=== PATIENT | male | born 1960 | race Caucasian/White ===

== ENCOUNTER 2023-03-04 12:28 | Outpatient (CLI) | payer BC, SELFPAY ==
--- NOTE | ~2023-03-04 | CT_ITS ---
Non-contrast CT scan of the Abdomen and Pelvis Clinical indication: Kidney stone Technique: 2.5 mm axial scans were obtained through the abdomen and pelvis without intravenous or or al contrast. Dose reduction technique was used on this scan by utilizing automated exposure control a nd iterative reconstruction technique. The dose-length product (DLP) was 960.55 mGy-cm. COMPARISON: 11/21/2011 Findings: Images through the lung bases reveal no abnormalities. There is no evidence of renal or ureteral calculi. The kidneys and the ureters are nondilated. The liver, spleen, pancreas, and adrenals appear normal. Small calcified gallstones are present. Ther e is no aortic aneurysm. There is no evidence of bowel obstruction. Images through the pelvis were performed. There is no evidence of ascites or lymphadenopathy. Urinary bladder unremarkable. Prostate gland is mildly enlarged. Small fat-containing left inguinal hernia p resent. Impression: No renal stones identified. Small fat-containing left inguinal hernia. Cholelithiasis. Reviewed, dictated and finalized at location . Impression: No renal stones identified. Small fat-containing left inguinal hernia. Cholelithiasis.
--- NOTE | ~2023-03-04 | XR_ITS ---
XR abdomen/kub 1V 03/04/2023 13:05 INDICATION: History of kidney stones TECHNIQUE: KUB COMPARISON: CT dated 11/21/2011 FINDINGS: Bowel gas pattern is normal. There are amorphous calcifications in the right upper abdomen, suspicious for gallstones. No definite renal stones. There is no evidence of free air, mass, organom egaly, ascites or obstruction. The bones appear intact. Median sternotomy wires are noted. IMPRESSION: 1: Calcifications in the right upper abdomen are likely gallstones.. Reviewed, dictated and finalized at location L.
== END 2023-03-04 12:29 | disposition home or self-care (01) ==
PROVIDERS: PCP Family Medicine; Visit Provider Urology
DX: Z87.442 Personal history of urinary calculi (principal); K40.90 Unilateral inguinal hernia, without obstruction or gangrene, not specified as recurrent; K80.20 Calculus of gallbladder without cholecystitis without obstruction
CPT/HCPCS: 74018; 74176

== ENCOUNTER 2025-09-26 09:08 | Outpatient (CLI) | payer BC, SELFPAY ==
--- OUTSIDE RECORDS SUMMARY | 2025-09-26 09:53 | XMS_ITS | Clinical Summary ---
Author Organization [email or web address] Address [address] [place] [address] Care Team Providers Care Customer Care Assistant Name Role Phone Unavailable Primary Care Provider Unavailabl e Source Comments [email or web address],non-owned Affiliates and Associated Physician Practices is amultiple site organization consisting of ambulatory clinics and hospital sitesin [place], [place] and [place]. This disclosure is being madepursuant to the Care Everywhere program and may not contain all information available regarding this patient. Last updated 18.[email or web address] Social History Tobacco Use Types Packs/Day Years Used Date Smoking Tobacco: Never Assessed Sex and Gender Information Value Date Recorded Sex Assigned at Not on file Legal Sex Male 11:12 PM [employer] Gender Identity Not on file Sexual Orientation Not on file Plan of Treatment Health Maintenance Due Date Last Done Comments COLOGUARD (AGES 45-75) - COL ON CA SCREENING 1960 COLON MONITORING 1960 COLONOSCOPY - COLON CA SCREENING 1960 CT COLONOGRAPHY - COLON CA SCREENING 1960 Colorectal Cancer Screening 1960 FIT - COLON CA SCREENING 1960 FLEX SIG - COLON CA SCREENING 1960 LIPID TESTING 1960 HIV SCREENING 1975 HEPATITIS C SCREENING 11/10/1978 DTAP/TDAP/TD VACCINES (1 - Tdap) 1979 PNEUMOCOCCAL VACCINE 50+ (1 of 1 - PCV) 2010 ZOSTER VACCINE (1 of 2) 2010 DEPRESSION SCREENING 10/27/2024 COVID-19 VACCINE ( - 2024-2 6 season) 2025 INFLUENZA VACCINE (#1) 2025 Respiratory Syncytial Virus (RSV) Vaccine Pt: or over 60 yrs (1 - 1-dose 75+ series) 2035 HEPATITIS B VACCINE Aged Out No longe r eligible based on patient's age to complete this topic HIB VACCINE Aged Out No longer eligi ble based on patient's age to complete this topic HPV VACCINE Aged Out No longer eligi ble based on patient's age to complete this topic MENINGOCOCCAL (Group B) VACC INE SHARED DECISION-MAKING Aged Out No longer eligibl e based on patient's age to complete this topic MENINGOCOCCAL GROUPS A/C/Y/W VACCINE Aged Out No longer eligible b ased on patient's age to complete this topic
[2025-09-26 10:49] LABS: Anion Gap 5 mmol/L (4-12); Blood Urea Nitrogen 19 mg/dL (9-20); Calcium 10.2 mg/dL (8.4-10.2); Carbon Dioxide 26 mmol/L (22-30); Chloride 107 mmol/L (98-107); Estimated Glomerular Filt Rate 56; Glucose 95 mg/dL (65-110); Potassium 4.2 mmol/L (3.4-5.0); Sodium 138 mmol/L (137-145)
== END 2025-09-26 09:09 | disposition home or self-care (01) ==
LOC: ANHSURGERY 09:11
PROVIDERS: Anesthesiology; PCP Family Medicine; Visit Provider Urology
DX: Z01.818 Encounter for other preprocedural examination (principal); T50.2X5A Adverse effect of carbonic-anhydrase inhibitors, benzothiadiazides and other diuretics, initial encounter
CPT/HCPCS: 36415; 80048

== ENCOUNTER 2025-09-29 00:46 | Day surgery (SDC) | payer BC, SELFPAY ==
--- OUTSIDE RECORDS SUMMARY | 2024-04-13 03:00 | XMS_ITS ---
Author Organization [facility] Address [address] [place] [address] Care Team Providers Care Railway Signal Operator Name Role Phone Dr. Alejandra Can Primary Care Provider [phone] Migration, Provider Unavailable Unavailable REASON FOR VISIT EMR-Marcin Encounters Encounter Location Date Provider Diagnosis [facility] [address] [place] [address] 04/13/2024 Provider Migration Otitis media, unspecified, left ear H66.92 and Cough, unspecified R05.9 Assessments Encounter Date Diagnosis (ICD Code) Assessment Notes Treatment Notes Treatment Clinical Notes Section Notes 04/13/2024 Otitis media, unspecified, left ear (ICD-10 - H66.92) 04/13/2024 Cough, unspecified (ICD-10 - R05.9) Plan Of Treatment Next Appt Details Provider Name:Dr. Alejandra Velasquez [facility], 04/21/2026 09:30:00 AM, [address] [facility], [place], [address], [phone] Progress Notes * Simón DOBBSOB:1960 (64 yo M)Acc No.[id number]:04/13/2024 Patient: Patrick Sanchez Provider: Kwasi pitt Migration :1960 A ge:63 Y S ex:Male Date:04/13/2024 Phone: Address:[address] [place] [address], [place], [phone] Pcp:Dr. 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 O titis media, unspecified, left ear - H66.92 S pecify :Src Diagnosis Name: Left otitis media 2 . C ough, unspecified - R05.9 S pecify :Src Diagnosis Name: Cough * Electronic signature of Prov ider Migration on 09/29/2025 at 12:49 AM GSA COORDINATOR Sign off status: Pending * Provider: Kwasi pitt Migration Date: 0 04/13/2024 Generated for Bandar stark/aHns/Katelin on: 1 11/30/2024 12:49 AM GSA COORDINATOR
--- OUTSIDE RECORDS SUMMARY | 2024-09-17 03:30 | XMS_ITS ---
Author Organization [facility] Address [address] [place] [address] Care Team Providers Care Trust Manager Name Role Phone Dr. Alejandra Can Primary Care Provider [phone] REASON FOR VISIT 6 mo check up Vital Signs Temperature 97.7 degrees Fahrenheit 09/17/20 24 Blood pressure systolic 110 mm Hg 09/17/20 24 Blood pressure diastolic 58 mm Hg 024 Heart Rate 59 /min 09/17/2024 Respiratory Rate 16 /min 09/17/2024 Height 70.00 in 09/17/2024 Weight 261.40 lbs 09/17/2024 BMI 37.50 kg/m2 09/17/2024 Oximetry 97 % 09/17/2024 Height-cm 177.80 cm 09/17/2024 Weight-kg 118.57 kg 09/17/2024 Encounters Encounter Location Date Provider Diagnosis [address] [address] 09/17/2024 Dr. Alejandra Can Essential (primary) hypertension I10 ; Prediabetes R73.03 ; Heartburn R12 ; Hyperlipidemia, unspecified E78.5 ; Morbid (severe) obesity due to excess calories E66.01 and Elevated prostate specific antigen [PSA] R97.20 Assessments Encounter Date Diagnosis (ICD Code) Assessment Notes Treatment Notes Treatment Clinical Notes Section Notes 09/17/2024 Essential (primary) hypertension (ICD-10 - I10) 09/17/2024 Prediabetes (ICD-10 - R73.03) 09/17/2024 Heartburn (ICD-10 - R12) 09/17/2024 Hyperlipidemia, unspecified (ICD-10 - E78.5) 09/17/2024 Morbid (severe) obesity due to excess calories (ICD-10 - E66.01) 09/17/2024 Elevated prostate specific antigen [PSA] (ICD-10 - R97.20) Plan Of Treatment Next Appt Details Provider Name:Dr. Alejandra dalal, 04/21/2026 09:30:00 AM, [address] [facility], [place], [address], [phone] Progress Notes * Simón DOBBSOB:1960 (64 yo M)Acc No.[id number]:09/17/2024 Patient: Patrick Sanchez Provider: Jorge Can MD :1960 A ge:63 Y S ex:Male Date:09/17/2024 Phone: Address:[address] [place] [id number] Subjective: * Chief Complaints: * 6 mo check up Objective: * Vitals: B P: 110/58 mm Hg, HR: 59 /min, RR: 16 /min, Temp: 97.7 F, Oxygen sat %: 97 %, Ht: 70.00 in, Wt: 261.40 lbs, Wt-k.57 kg, Ht-cm: 177.80 cm, BMI: 37.50 Index. Past Vitals:* 02/27/2024 BP: 132/72 mm Hg, HR: 57 /mi n, Oxygen sat %: 98 %, Wt: 267.40 lbs, Wt-k.29 kg * 08/18/2023 BP: 126/86 mm Hg, HR: 58 /mi n, Oxygen sat %: 95 %, Wt: 300.25 lbs, Wt-k.19 kg Assessment: * Assessment: 1. M orbid (severe) obesity due to excess calories - E66.01 2 . H yperlipidemia, unspecified - E78.5 S pecify :Src Diagnosis Name: Hyperlipidemia 3 . E ssential (primary) hypertension - I10 4 . H eartburn - R12 5 . P rediabetes - R73.03 6 . E levated prostate specific antigen [PSA] - R97.20 S pecify :Src Diagnosis Name: PSA elevation * Electronic signature of Dr. Alejandra Can on 09/29/2025 at 12:49 AM PUMP ATTENDANT Sign off status: Pending * Provider: Jorge Can MD Date: 11/17/2023 Generated for Bandar stark/Hans/Katelin on: 11/30/2024 12:49 AM PUMP ATTENDANT
--- OUTSIDE RECORDS SUMMARY | 2024-09-25 03:00 | XMS_ITS ---
Author Organization [facility] Address [address] [place] [address] Care Team Providers Care Senior Hardware Design Engineer Name Role Phone Dr. Alejandra Can Primary Care Provider [phone] Migration, Provider Unavailable Unavailable REASON FOR VISIT EMR-Marcin Encounters Encounter Location Date Provider Diagnosis [facility] [address] [place] [address] 09/25/2024 Provider Migration Plan Of Treatment Medication Medication Name Sig Start Date Stop Date Notes Repatha SureClick 140 mg/mL Solution Auto-injector Subcutaneous; Duration: 28 05/02/2021 11/11/2021 ,discontinuereason:D iscontinued Pepcid oral; Duration: 0 05/29/2021 11/11/2021 ,discon tinuereason:D iscontinued *Pick strength-form from [facility] for eRX* Nitroglycerin 0.6 MG Tablet Sublingual Sublingual; Duration: 0 05/29/2021 11/11/2021 ,discontinuereason:D iscontinued Tadalafil 5 MG Tablet 1 Oral every day; Duration: 90 08/30/2024 09/16/2024 ,discontinuereason:D iscontinued Tadalafil 20 MG Tablet Oral; Duration: 0 01/24/20232022 Rx Refill Request,discontinuer tawnya:Refilled Fish Oil 1000 MG Capsule 1 Oral every da y; Duration: 0 11/12/2021 04/23/2023 ,discontinuereason:D iscontinued Topiramate 50 MG Tablet 1 Oral two times a day; Duration: 30 06/17/2024 06/17/2024 Rx Refill Request,discontinuer tawnya:Refilled Doxycycline Hyclate 100 MG Tablet 1 Oral two times a day; Duration: 10 04/11/2022 04/20/2022 Klor-Con M20 20 MEQ Tablet Extended Release 1 Oral every day; Duration: 0 11/12/2021 09/16/2024 ,discontinuereason:D iscontinued ranolazine 1000.000 mg tablet extended release 12 hr oral; Duration: 90 03/12/2021 11/11/2021 ,discontinuer tawnya:D iscontinued *Reorder from [facility] for eRx and Interaction Alerts* Ketoconazole 2 % Cream External two time s a day; Duration: 0 08/15/2022 09/16/2024 ,discontinuereason:D iscontinued Cephalexin 500 MG Tablet 1 Oral three ti mes a day; Duration: 11/12/2021 11/21/2021 Furosemide 40 MG Tablet 1 Oral; Duration: 0 05/29/2021 ,discontinuereason:D iscontinued Mupirocin 2 % Ointment External three times a day; Duration: 0 08/15/2022 09/16/2024 ,discontinuereason:D iscontinued Benzonatate 100 MG Capsule 1 Oral three times a day; Duration: 03/21/2023 03/30/2023 Ozempic (0.25 or 0.5 MG/DOSE) 2 MG/3ML Solution Pen-injector Subcutaneous; Duration: 0 09/11/2023 10/13/2023 insurance denied [place],discontinuereason :Insurance Coverage Cyclobenzaprine HCl 5 MG Tablet 1 Oral three times a day; Duration: 06/05/2022 09/16/2024 ,discontinuereason:D iscontinued,PRN Reason:for pain Clopidogrel Bisulfate 75 MG Tablet 1 Oral every day; Duration: 0 11/12/2021 08/17/2023 ,discontinuereason:D iscontinued Aspirin Adult Low Strength 81 MG Tablet Delayed Release Oral; Duration: 0 05/29/2021 11/11/2021 ,discontinuere ason:D iscontinued Vitamin B-12 1,000 mcg Tablet Extended Release 1 Oral every day; Duration: 0 05/29/2021 11/11/2021 ,discontinuereason:D iscontinued *Pick strength-form from [facility] for eRX* ProAir RespiClick 108 (90 Base) MCG/ACT Aerosol Powder Breath Activated 2 Inhalation every 4-6 hours; Duration: 0 10/07/2023 10/07/2023 ,PRN Reason:for SOB Metoprolol Succinate ER 25 MG Tablet Extended Release 24 Hour 1/2 Oral every day; Duration: 0 11/12/2021 04/23/2023 ,discontinuereason:D iscontinued Naproxen 500 MG Tablet 1 Oral two times a day; Duration: 01/17/2024 01/26/2024 predniSONE 20 MG Tablet 3 Oral every day ; Duration: 04/22/2022 04/24/2022 dexAMETHasone 6 MG Tablet 1 Oral every day; Duration: 04/11/2022 04/11/2022 Ezetimibe 10 MG Tablet Oral; Duration: 03/17/202111/11 ,discontinuereason:D iscontinued Lisinopril 20 MG Tablet 1 Oral every day ; Duration: 0 11/12/2021 09/16/2024 ,discontinuereason:R efilled metFORMIN HCl ER 500 MG Tablet Extended Release 24 Hour 1 Oral two times a day; Duration: 0 08/20/2023 08/25/2023 ,discontinuereason:A llergic Reaction Topiramate 25 MG Tablet 1 Oral two times a day; Duration: 30 10/30/2023 11/23/2023 ,discontinuereason:D iscontinued Potassium Chloride ER 20 MEQ Tablet Extended Release 1 Oral; Duration: 0 05/29/2021 11/11/2021 ,discontinue reason:D iscontinued fesoterodine 4 mg Tablet(s) 1 BY MOUTH every day; Duration: 03/23/2024 03/23/2024 Rx Refill Request,discontinuer tawnya:Refilled *Reorder from [facility] for eRx and Interaction Alerts* Amoxicillin-Pot Clavulanate 875-125 MG Tablet 1 Oral two times a day; Duration: 01/17/2024 01/26/2024 Toviaz 4 MG Tablet Extended Release 24 Hour 1 Oral every day; Duration: 30 08/18/2023 10/16/2023 ,discontinuereason:R efilled Flomax 0.4 MG Capsule 1 Oral every day; Duration: 30 06/05/2022 09/02/2022 Ondansetron 4 MG Tablet Disintegrating 1 Oral every 6-8 hours; Duration: 0 08/26/2023 08/26/2023 Rx Refill Request,discontinuer tawnya:Refilled,PRN Reason:for nausea Valtrex 1 GM Tablet 1 Oral three times a day; Duration: 04/19/2022 04/28/2022 Doxycycline Monohydrate 100 MG Capsule 1 Oral two times a day; Duration: 10/07/2023 10/16/2023 Doxycycline Monohydrate 100 MG Tablet 1 Oral two times a day; Duration: 12/11/2021 12/20/2021 Next Appt Details Provider Name:Dr. Alejandra Velasquez [facility], 04/21/2026 09:30:00 AM, [address] [place], [address], [phone] Progress Notes * Simón DOBBSOB:1960 (64 yo M)Acc No.[id number]:09/25/2024 Patient: Jake Patrick TAM :1960 A ge:63 Y S ex:Male Phone: Address:[address] [place] [address], [place], [address] * Refills Stop Benzonatate Capsule, 100 MG, Oral, 30, 1, three times a day, 10 Stop Doxycycline Hyclate Tablet, 100 MG, Oral, 20, 1, two times a day, 10 Stop Topiramate Tablet, 50 MG, Oral, 60, 1, two times a day, 30 Stop Flomax Capsule, 0.4 MG, Oral, 30, 1, every day, 30 Stop Ketoconazole Cream, 2 %, External, 60, two times a day, 0 Stop Lisinopril Tablet, 20 MG, Oral, 90, 90 Stop Mupirocin Ointment, 2 %, External, 22, three times a day, 0 Stop Topiramate Tablet, 50 MG, Oral, 60, 1, two times a day, 30 Stop Topiramate Tablet, 50 MG, Oral, 60, 1, two times a day, 30 Stop Topiramate Tablet, 50 MG, Oral, 60, 1, two times a day, 30 Stop Topiramate Tablet, 50 MG, Oral, 60, 1, two times a day, 30 Stop Topiramate Tablet, 25 MG, Oral, 30, 1, every night at bedtime, 30 Stop Topiramate Tablet, 50 MG, Oral, 60, 1, two times a day, 30 Stop Topiramate Tablet, 50 MG, Oral, 60, 1, two times a day, 30 Stop ranolazine tablet extended release 12 hr, 1000.000 mg, oral, 180, 90 Stop Amoxicillin-Pot Clavulanate Tablet, 875-125 MG, Oral, 20, 1, every 12 hours, 10 Stop Amoxicillin-Pot Clavulanate Tablet, 875-125 MG, Oral, 20, 1, two times a day, 10 Stop Tadalafil Tablet, 5 MG, Oral, 30, 1, every day, 30 Stop fesoterodine Tablet(s), 4 mg, BY MOUTH, 30, 1, every day, 30 Stop Potassium Chloride ER Tablet Extended Release, 20 MEQ, Oral, 1, 0 Stop fesoterodine Tablet(s), 4 mg, BY MOUTH, 30, 1, every day, 30 Stop Cephalexin Tablet, 500 MG, Oral, 30, 1, three times a day, 10 Stop Clopidogrel Bisulfate Tablet, 75 MG, Oral, 90, 90 Stop Fish Oil Capsule, 1000 MG, Oral, 1, every day, 0 Stop Klor-Con M20 Tablet Extended Release, 20 MEQ, Oral, 1, every day, 0 Stop Tadalafil Tablet, 20 MG, Oral, 10, 0 Stop Tadalafil Tablet, 5 MG, Oral, 90, 1, every day, 90 Stop Doxycycline Monohydrate Tablet, 100 MG, Oral, 20, 1, two times a day, 10 Stop Doxycycline Monohydrate Capsule, 100 MG, Oral, 20, 1, two times a day, 10 Stop Tadalafil Tablet, 5 MG, Oral, 30, 1, every day, 30 Stop Tadalafil Tablet, 5 MG, Oral, 90, 1, every day, 90 Stop Valtrex Tablet, 1 GM, Oral, 30, 1, three times a day, 10 Stop Toviaz Tablet Extended Release 24 Hour, 4 MG, Oral, 30, 1, every day, 30 Stop Aspirin Adult Low Strength Tablet Delayed Release, 81 MG, Oral, 0 Stop Ozempic (0.25 or 0.5 MG/DOSE) Solution Pen-injector, 2 MG/3ML, Subcutaneous, 3, 0 Stop Metoprolol Succinate ER Tablet Extended Release 24 Hour, 25 MG, Oral, 90, 90 Stop Clopidogrel Bisulfate Tablet, 75 MG, Oral, 1, every day, 0 Stop Cyclobenzaprine HCl Tablet, 5 MG, Oral, 30, 1, three times a day, 10 Stop Furosemide Tablet, 40 MG, Oral, 1, 0 Stop dexAMETHasone Tablet, 6 MG, Oral, 1, 1, every day, 1 Stop Fish Oil Capsule, 1000 MG, Oral, 0 Stop Tadalafil Tablet, 5 MG, Oral, 90, 1, every day, 90 Stop ProAir RespiClick Aerosol Powder Breath Activated, 108 (90 Base) MCG/ACT, Inhalation, 8.5, 2, every 4-6 hours, 0 Stop Benzonatate Capsule, 100 MG, Oral, 30, 1, every 6-8 hours, 0 Stop Ezetimibe Tablet, 10 MG, Oral, 90, 90 Stop Lisinopril Tablet, 20 MG, Oral, 1, every day, 0 Stop Metoprolol Succinate ER Tablet Extended Release 24 Hour, 25 MG, Oral, 1/2, every day, 0 Stop Flomax Capsule, 0.4 MG, Oral, 30, 1, every day, 30 Stop Ondansetron Tablet Disintegrating, 4 MG, Oral, 10, 1, every 6-8 hours, 0 Stop Topiramate Tablet, 25 MG, Oral, 60, 1, two times a day, 30 Stop Topiramate Tablet, 50 MG, Oral, 60, 1, two times a day, 30 Stop metFORMIN HCl ER Tablet Extended Release 24 Hour, 500 MG, Oral, 60, 1, two times a day, 0 Stop Nitroglycerin Tablet Sublingual, 0.6 MG, Sublingual, 0 Stop Pepcid, oral, 0 Stop Repatha SureClick Solution Auto-injector, 140 mg/mL, Subcutaneous, 2, 28 Stop Naproxen Tablet, 500 MG, Oral, 20, 1, two times a day, 10 Stop predniSONE Tablet, 20 MG, Oral, 18, 3, every day, 3 Stop Vitamin B-12 Tablet Extended Release, 1,000 mcg, Oral, 1, every day, 0 Subjective: * Chief Complaints: * 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
--- OUTSIDE RECORDS SUMMARY | 2024-09-26 03:00 | XMS_ITS ---
Author Organization [facility] Address [address] [place] [address] Care Team Providers Care Synthetic Filament Spinner Name Role Phone Dr. Alejandra Can Primary Care Provider [phone] Migration, Provider Unavailable Unavailable Allergies Allergen (clinical drug ingredient) Drug/Non Drug Allergy documented on EMR Reaction Allergy Type Onset Date Status atenolol Atenolol hypotensive Drug Allergy 11/12/2021 Acti ve calcium carbonate Calcium renal stones Drug Allergy 2021 Active Imdur bradycardia, dizzy Drug Allergy 11/12/19 Active atorvastatin Lipitor Unknown Drug Allergy 05/28/2021 Act mir metformin metFORMIN nausea, emesis, diarrhea Drug Allergy 08/26/2023 Active Substance with 1-bpomlzs-6-methylg lutaryl-coenzyme A reductase inhibitor mechanism of action (substance) Statins joint pain Drug Allergy 05/28/2021 Active warfarin Warfarin hypotensive Drug Allergy 11/12/2021 Acti ve REASON FOR VISIT EMR-Marcin Medications Medication SIG (Take, Route, Frequency, Duration) Notes Start Date End Date Status Vitamin B-12 1000 MCG Tablet 1 Oral every day; Duration: 0 11/12/2021 Active Aspirin Adult Low Strength 81 MG Tablet Delayed Release 1 Oral every day; Duration: 0 11/12/2021 Active Torsemide 20 MG Tablet 1 Oral every day; Duration: 0 11/12/2021 Active Vitamin D3 50 MCG (2000 UT) Tablet 1 Oral every day; Duration: 0 11/12/2021 Active Lisinopril 10 MG Tablet 1 Oral every day; Duration: 90 09/17/2024 03/15/2025 Active Repatha SureClick 140 MG/ML Solution Auto-injector 1 Subcutaneous Monthly; Duration: 0 11/12/2021 Active Triamcinolone Acetonide 0.05 % OINTMENT (GRAM) TOPICAL two times a day; Duration: 0 *Pick strength-form from [facility] for eRX* 04/16/2022 Active Zetia 10 MG Tablet 1 Oral every night at bedtime; Duration: 0 11/12/2021 Active Nitroglycerin 0.4 MG Tablet Sublingual Sublingual; Duration: 0 11/12/2021 Active Topiramate 50 MG Tablet 1 Oral two times a day; Duration: 90 07/19/2024 10/16/2024 Active fesoterodine 4 mg Tablet(s) 1 BY MOUTH every day; Duration: 30 *Reorder from [facility] for eRx and Interaction Alerts* 08/17/2024 01/13/2025 Active ranolazine 1,000 mg Tablet(s) 1 BY MOUTH two times a day; Duration: 0 *Reorder from [facility] for eRx and Interaction Alerts* 11/12/2021 Active Social History Social History Additional Details Category Social Info Options Details Migrated Social History Migrated Social History Marital status: , Employment:Retired ,notes : Full nursing home in 2023 Encounters Encounter Location Date Provider Diagnosis [facility] [address] [place] [address] 09/26/2024 Provider Migration Plan Of Treatment Next Appt Details Provider Name:Dr. 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 vessel taken from left arm and right leg 2 Colonoscopy ,notes : Dr. Crispin Llanes. Three polyps removed: ascending colon, transverse colon, and rectum. All identified as tubular adenomas. Negarive for high grade dysplasias. 06/01/2021 * Social History: M igrated Social History: M igrated Social History: Marital status:,Employment:Retired ,notes : Full nursing home in 2023. * Medications: T akingTorsemide 20 MG Tablet 1 Oral every day Vitamin D3 50 MCG (2000 UT) Tablet 1 Oral every day Vitamin B-12 1000 MCG Tablet 1 Oral every day Nitroglycerin 0.4 MG Tablet Sublingual Sublingual fesoterodine 4 mg Tablet(s) 1 BY MOUTH every day , stop date 01/13/2025, Notes to Pharmacist: *Reorder from [facility] for eRx and Interaction Alerts*Zetia 10 MG Tablet 1 Oral every night at bedtime Repatha SureClick 140 MG/ML Solution Auto-injector 1 Subcutaneous Monthly Aspirin Adult Low Strength 81 MG Tablet Delayed Release 1 Oral every day Topiramate 50 MG Tablet 1 Oral two times a day , stop date 10/16/2024Lisinopril 10 MG Tablet 1 Oral every day , stop date 03/15/2025ranolazine 1,000 mg Tablet(s) 1 BY MOUTH two times a day , Notes to Pharmacist: *Reorder from [facility] for eRx and Interaction Alerts*Triamcinolone Acetonide 0.05 % OINTMENT (GRAM) TOPICAL two times a day , Notes to Pharmacist: *Pick strength-form from [facility] for eRX*Taking Torsemide 20 MG Tablet 1 Oral every day Taking Vitamin D3 50 MCG (2000 UT) Tablet 1 Oral every day Taking Vitamin B-12 1000 MCG Tablet 1 Oral every day Taking Nitroglycerin 0.4 MG Tablet Sublingual Sublingual Taking fesoterodine 4 mg Tablet(s) 1 BY MOUTH every day , stop date 01/13/2025, Notes to Pharmacist: *Reorder from [facility] for eRx and Interaction Alerts*Taking Zetia 10 MG Tablet 1 Oral every night at bedtime Taking Repatha SureClick 140 MG/ML Solution Auto-injector 1 Subcutaneous Monthly Taking Aspirin Adult Low Strength 81 MG Tablet Delayed Release 1 Oral every day Taking Topiramate 50 MG Tablet 1 Oral two times a day , stop date 10/16/2024Taking Lisinopril 10 MG Tablet 1 Oral every day , stop date 05/20/2025Taking ranolazine 1,000 mg Tablet(s) 1 BY MOUTH two times a day , Notes to Pharmacist: *[facility] from [facility] for eRx and Interaction Alerts*Taking Triamcinolone Acetonide 0.05 % OINTMENT (GRAM) TOPICAL two times a day , Notes to Pharmacist: *Pick strength-form from [facility] for eRX* * Allergies: m etFORMIN: nausea, emesis, diarrhea - Allergy - Onset Date 08/26/2023Lipitor: Allergy - Onset Date 05/28/2021Imdur: bradycardia, dizzy - Allergy - Onset Date 11/12/2021alcium: renal stones - Allergy - Onset Date 11/12/2021Warfarin: hypotensive - Allergy - Onset Date 11/12/2021tatins: joint pain - Allergy - Onset Date 05/28/2021tenolol: hypotensive - Allergy - Onset Date 11/12/2021 Objective: Past Vitals:* 09/17/2024 BP: 110/58 mm Hg, HR: 59 /mi n, Oxygen sat %: 97 %, Wt: 261.40 lbs, Wt-k.57 kg * 02/27/2024 BP: 132/72 mm Hg, HR: 57 /mi n, Oxygen sat %: 98 %, Wt: 267.40 lbs, Wt-k.29 kg * * Date:
--- NOTE | 2025-09-15 13:06 | PM.HPGS ---
History of Present Illness History of Present Illness Consent: Risks, benefits, and alternatives have been discussed and questions answered. Patient agrees to proceed with procedure. Chief complaint: elevated PSA Narrative: Patrick Pepper is a 64 year old male patient of Dr. Watson and Aminata Zapata, DION. PSA TREND: 06/2025 IsoPSA - 10.6 . BRACAnalysis CDx: 03/2025 - 4.19 02/2025 - 4.2 09/2024 - 3.7 08/2024 - 5.49 10/2021 - 3.5 09/2019 - 2.9 07/2025: mpMRI Prostate (Rayus): PV - 59.57cc, PSAD - 0.07 PI-RADS category 4 left peripheral zone gland mid , LOGAN # 1 .UWith this abnormal PSA elevation and MRI findings patient has elected for a UroNav transrectal prostate biopsy. He is aware the risk including, but not limited to, failure to diagnose prostate cancer, need for additional therapy, hematuria, rectal bleeding and systemic infection Review of Systems Review of Systems: All systems reviewed & are unremarkable except as noted in HPI and below Meds Home Medications and Allergies Allergies Allergy/AdvReac Type Severity Reaction Status Date / Time atenolol Allergy Severe Palpitation Unverified 11/21/11 11:03 s Exam Const: General: no acute distress Resp: Effort & Inspection: normal respiratory effort GI: Inspection: non-distended GI Palp: No abdominal tenderness and No Guarding due to palpation present (GI) Auscultation: normal bowel sounds Assessment and Plan Assessment and plan (1) Elevated PSA: Code(s): R97.20 - Elevated prostate specific antigen [PSA] Status: Acute Assessment and Plan: Transrectal ultrasound infusing guided biopsy of prostate (UroNav)
[2025-09-20 14:52] VITALS: BMI 37.5
--- NOTE | 2025-09-20 15:19 | PC.NURSE ---
[facility] has started construction of its new state of the art ER which will open Spring 2026. With this, we anticipate parking may be a challenge for some our surgical patients and families. Parking spaces are limited but are available for all Surgical, obstetrics, and ER patients sharing this lot. If you arrive and find you are having a hard time finding a parking space, please note that we understand the challenges, please drive around the hospital and park near Hospital Entrance 1. When you enter this entrance, you can ask a volunteer to direct or take you back to the surgical waiting area to check in. We appreciate everyone?s understanding of these expected challenges while we build for your future. Report to the Outpatient Waiting Room, entrance under the green pavilion located off [address], at time 6:15AM on date09/29/2025. Planned Procedure Time: 8:15AM.? Time changes happen often and if your time is changed the preop area will call you the afternoon before. - You and your visitor will be asked to self-screen and do not enter if you have any COVID symptoms. Please call surgeon if you need to reschedule. - A mask is optional within the hospital at this time. Patients may have clear liquids (water, carbonated beverages, clear teas, apple juice) until 3 hours prior to surgery with a maximum of 20 ounces. - No food from midnight until time of surgery and no smoking, or chewing tobacco (or any form of nicotine). No chewing gum, candy or mints. Take only the following medications with a SIP of water on the morning of surgery: Topamax DO NOT STOP ANY OF YOUR OTHER PRESCRIPTION MEDICATIONS PRIOR TO SURGERY EXCEPT THE FOLLOWING Hold all vitamins and supplements for 3 days per anesthesiologist. Medications to discontinue per physician- ASA 10 days per [place] Date to take last dose: vitamins 09/26/2025, ASA 09/19/2025 Please no make-up, nail faroese, hairspray, perfume, deodorant, or body powder the day of surgery.? No jewelry (including any body piercings) or valuables the day of surgery, leave them at home.? Please take a shower or bath the night before, or the morning of, surgery with an antibacterial soap.? Wear comfortable, loose fitting clothing.? Children are encouraged to wear pajamas. - Jewelry must be removed prior to entering the operating room.? Rings and piercings that are not removed may be cut off. - The hospital will not accept responsibility for valuables.? - Please leave all valuables, including medications, at home the day of surgery. If you are going home after surgery, a licensed airport shuttle driver must drive you home.? - NO public transportation without another adult if you receive anesthesia. - We recommend that an adult stay with you for 24 hours following discharge. - We also recommend that you do not drive, make important decision, drink alcoholic beverages, or take any drugs that were not prescribed by your health care provider for at least 24 hours after your discharge time. Follow any additional instructions given to you from your surgeon. Telephone instructions given to patient and asked if any additional questions and then verbalized understanding. Patient advised to call surgeon office or pre surgery nurse liaison [phone] if any additional questions.
--- OUTSIDE RECORDS SUMMARY | 2025-09-28 04:45 | XMS_ITS ---
Author Organization [facility] Address [address] [place] [address] Care Team Providers Care Bakeshop Cleaner Name Role Phone Dr. Alejandra Can Primary Care Provider [phone] Alejandra Ch Unavailable [phone] Allergies Allergen (clinical drug ingredient) Drug/Non Drug Allergy documented on EMR Reaction Allergy Type Onset Date Status atenolol Atenolol hypotensive Drug Allergy 11/12/2021 Acti ve calcium carbonate Calcium renal stones Drug Allergy 2021 Active Imdur bradycardia, dizzy Drug Allergy 11/12/19 22 Active atorvastatin Lipitor Unknown Drug Allergy 05/28/2021 Act mir metformin metFORMIN nausea, emesis, diarrhea Drug Allergy 08/26/2023 Active Substance with 3-wgqrcwk-9-methylg lutaryl-coenzyme A reductase inhibitor mechanism of action (substance) Statins joint pain Drug Allergy 05/28/2021 Active warfarin Warfarin hypotensive Drug Allergy 11/12/2021 Acti ve REASON FOR VISIT 6 month f/u Medications Medication SIG (Take, Route, Frequency, Duration) Notes Start Date End Date Status Topiramate 50 MG Tablet 1.5 tablets Orally twice a day; Duration: 90 days increased dose, patient requesting to be filled with new directions. thank you. Active Fesoterodine Fumarate ER 4 MG Tablet Extended Release 24 Hour 1 tablet Orally Once a day; Duration: 30 days Active ranolazine 1,000 mg Tablet(s) 1 BY MOUTH two times a day; Duration: 0 *Reorder from [employer] for eRx and Interaction Alerts* 11/12/2021 Active Aspirin Adult Low Strength 81 MG Tablet Delayed Release 1 Oral every day; Duration: 0 11/12/2021 Active Tadalafil 5 MG Tablet 1 tablet Orally Once a day; Duration: 90 days Active Vitamin B-12 1000 MCG Tablet 1 Oral every day; Duration: 0 11/12/2021 Active Vitamin D3 50 MCG (2000 UT) Tablet 1 Oral every day; Duration: 0 11/12/2021 Active Nitroglycerin 0.4 MG Tablet Sublingual Sublingual; Duration: 0 11/12/2021 Active Repatha SureClick 140 MG/ML Solution Auto-injector 1 Subcutaneous Monthly; Duration: 0 11/12/2021 Active Zetia 10 MG Tablet 1 Oral every night at bedtime; Duration: 0 11/12/2021 Active Lisinopril 20 MG Tablet 1 tablet Orally Once a day Active Torsemide 20 MG Tablet 1 Oral every day; Duration: 0 days As needed 11/12/2021 Active Mirabegron ER 50 MG Tablet Extended Release 24 Hour 1 tablet Orally Once a day Active Problems Problem Type SNOMED Code ICD Code Onset Dates Problem Status W/U Status Risk Notes Problem Obese class II ([id number]) BMI 38.0-38.9,a dult (Z68.38) Active confirmed Vital Signs Temperature 96.5 degrees Fahrenheit 09/28/20 25 Blood pressure systolic 104 mm Hg 09/28/20 25 Blood pressure diastolic 58 mm Hg 025 Heart Rate 59 /min 09/28/2025 Height 70.00 in 09/28/2025 Weight 267.0 lbs 09/28/2025 BMI 38.31 kg/m2 09/28/2025 Oximetry 97 % 09/28/2025 Height-cm 177.8 cm 09/28/2025 Weight-kg 121.11 kg 09/28/2025 Encounters Encounter Location Date Provider Diagnosis [address] [address] 09/28/2025 Alejandra Ch Elevated PSA R97.20 ; Enlarged prostate with lower urinary tract symptoms N40.1 ; Overactive bladder N32.81 ; Essential (primary) hypertension I10 ; Hyperlipidemia, unspecified E78.5 ; Atherosclerotic heart disease of andreafski coronary artery without angina pectoris I25.10 ; Sleep apnea, unspecified G47.30 ; Morbid obesity E66.01 ; BMI 38.0-38.9,adult Z68.38 and Vitamin D deficiency E55.9 Assessments Encounter Date Diagnosis (ICD Code) Assessment Notes Treatment Notes Treatment Clinical Notes Section Notes 09/28/2025 Elevated PSA (ICD-10 - R97.20) 09/28/2025 Enlarged prostate with lower urinary tract symptoms (ICD-10 - N40.1) Known enlarged prostate; Urology identified a few spots requiring biopsy (scheduled for tomorrow at [facility]). One prior bladder/prostate medication stopped this morning per Urologist; new medication started. Plan: After procedure, patient will notify clinic of any medication changes initiated by urology. Await pathology results; follow up per Urology recommendations. Continue current recommended med regimen per Urology. 09/28/2025 Overactive bladder (ICD-10 - N32.81) 09/28/2025 Essential (primary) hypertension (ICD-10 - I10) Well controlled. Taking Lisinopril daily. Managed by Cardiology, Dr. Aguillon, has upcoming appt. with him in one month. Plan: - Recommend low sodium diet/heart healthy diet, daily intentional exercise or movement, weight management, and medication compliance for best control of blood pressure - Routine monitoring of CMP (electrolytes/kidn ey function) and Lipid panel every 6 months. - Encouraged monitoring blood pressure at home daily (check BP upon awakening, then 1-2 hours after taking BP medication) and log readings - Goal BP to be less than 130/80 - Monitor for symptoms such as: chest pain, dyspnea, swelling in legs fatigue, dizziness upon standing, vision changes and/or headaches. 09/28/2025 Hyperlipidemia, unspecified (ICD-10 - E78.5) Excellent lipid control on Repatha and Zetia. Plan: Continue Repatha injections and Zetia as currently prescribed by cardiology. Recheck lipids every 6 months. 09/28/2025 Atherosclerotic heart disease of andreafski coronary artery without angina pectoris (ICD-10 - I25.10) 09/28/2025 Sleep apnea, unspecified (ICD-10 - G47.30) Uses CPAP nightly; notes mask may be oversized now. Plan: [facility]. Continue nightly CPAP use. 09/28/2025 Morbid obesity (ICD-10 - E66.01) 09/28/2025 BMI 38.0-38.9,adult (ICD-10 - Z68.38) 09/28/2025 Vitamin D deficiency (ICD-10 - E55.9) Low vitamin D on labs; was taking daily Vit. D3 supplement. Plan: Will resume prior vitamin D supplementation once recovered from tomorrow's procedure with Urology. 09/28/2025 Other Preventive & Ongoing care -Colonoscopy overdue (was postponed due to rib fracture); influenza vaccine declined. Plan: [facility] Influenza vaccination offered; patient declines at this time. Office blood pressure within normal limits today; continue current home practices. Schedule routine follow-up with this clinic in 6 months (or sooner as needed). Plan Of Treatment Treatment Notes Assessment Notes Enlarged prostate with lower urinary tract symptoms Known enlarged prostate; Urology identified a few spots requiring biopsy (scheduled for tomorrow at [facility]). One prior bladder/prostate medication stopped this morning per Urologist; new medication started. Plan: After procedure, patient will notify clinic of any medication changes initiated by urology. Await pathology results; follow up per Urology recommendations. Continue current recommended med regimen per Urology. Essential (primary) hypertension Well controlled. Taking Lisinopril daily. Managed by Cardiology, Dr. Aguillon, has upcoming appt. with him in one month. Plan: - Recommend low sodium diet/heart healthy diet, daily intentional exercise or movement, weight management, and medication compliance for best control of blood pressure - Routine monitoring of CMP (electrolytes/kidney function) and Lipid panel every 6 months. - Encouraged monitoring blood pressure at home daily (check BP upon awakening, then 1-2 hours after taking BP medication) and log readings - Goal BP to be less than 130/80 - Monitor for symptoms such as: chest pain, dyspnea, swelling in legs fatigue, dizziness upon standing, vision changes and/or headaches. Hyperlipidemia, unspecified Excellent lipid control on Repatha and Zetia. Plan: Continue Repatha injections and Zetia as currently prescribed by cardiology. Recheck lipids every 6 months. Sleep apnea, unspecified Uses CPAP nightly; notes mask may be oversized now. Plan: Patient plans to schedule [facility]. Continue nightly CPAP use. Vitamin D deficiency Low vitamin D on labs; was taking daily Vit. D3 supplement. Plan: Will resume prior vitamin D supplementation once recovered from tomorrow's procedure with Urology. Other Preventive & Ongoing care -Colonoscopy overdue (was postponed due to rib fracture); influenza vaccine declined. Plan: Patient [facility] per prior schedule). Influenza vaccination offered; patient declines at this time. Office blood pressure within normal limits today; continue current home practices. Schedule routine follow-up with this clinic in 6 months (or sooner as needed). Next Appt Details Follow Up: 6 Months, Reason: Med Check w/ labs Provider Name:Dr. Alejandra dalal, 04/21/2026 09:30:00 AM, [address] [facility], [place], [address], [phone] History and Physical Notes * HPI (History of Present Illness) Category Sub-Category Detail Notes Category Not es HPI 6 Month F/U and Med Check: -- [facility]; only abnormal value was low Vit. D (27) Elevated PSA - PSA increased from 3.7 in September to 4.2, which is high. Possible causes discussed. 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 - Consider rechecking PSA every three to six months to monitor trends. Overactive Bladder - Taking Fesoterodine 4 mg daily for overactive bladder. Previously seen by Urology and diagnosed with enlarged prostate. MRA completed by Urology showed prostate double the normal size with lesions that graded a 4/5 and has a biopsy scheduled for 09/29/[address] Gotti at [facility]. Weight Loss and Prediabetes - Significant weight loss from 305 lbs to 269 lbs at last OV per Dr. Can. - A1C improved from prediabetic to normal range. - Continue current management and lifestyle changes were suggested at last OV. Topiramate Use - No reported side effects from topiramate. Effective for weight loss; taking 75mg BID. HLD: - Managed with Zetia and Repatha injection. Managed by [employer], Dr. Aguillon. HTN: - 1 year ago was managed with Lisinopril 10mg daily. Has Torsemide on the list PRN for fluid retention/swelling. Managed by [employer], Dr. Aguillon. JOSE RAUL: - CPAP use daily. *Colonoscopy was due this year but was postponed after a rib fracture in March/April; [facility]. Denies smoking and alcohol use. Declines influenza vaccination today. Examination Category Sub-Category Detail Notes Category Not es General Examination General appearance: alert, p leasant, well-nourished and in no acute distress Head: normocephalic, atrau matic Eyes: extraocular movement intact (EOMI), pupils equal, round, reactive to light and accommodation, conjunctiva clear Ears: both ears, tympanic membrane intact and clear Nose: nares patent Throat: pharynx normal, barbara r Neck / thyroid: normal thyroid size and shape without nodules, or tenderness, neck is supple with no cervical lymphadenopathy Heart: regular rate and rhy thm Lungs: clear to auscultatio n bilaterally, with good air movement and no rales, rhonchi or wheezes Abdomen: soft, large with goo d bowel sounds, nontender, and no masses or hepatosplenomegaly Skin: warm and dry; good s kin turgor Extremities: normal extremity wit h no clubbing, cyanosis or edema Peripheral pulses: 2+ radial Lymph nodes: no cervical lymphade nopathy Psych: alert and oriented x 3, cooperative with exam, with good judgement and insight, normal affect / mood Oral cavity: normal, mucosa moist , palate normal Progress Notes * Dashawn DOBBSinDOB:1960 (64 yo M)Acc No.[id number]:09/28/2025 Patient: Patrick Sanchez Provider: Jorge Ch NP :1960 A ge:64 Y S ex:Male Date:09/28/2025 Phone: Address:[address] [place], [place] [id number] Pcp:Dr. Alejandra Can Subjective: * Chief Complaints: * 6 month f/u * HPI: H PI: 6 Month F/U and Med Check: -- [facility]; only abnormal value was low Vit. D (27) Elevated PSA - PSA increased from 3.7 in September to 4.2, which is high. Possible causes discussed. 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 - Consider rechecking PSA every three to six months to monitor trends. Overactive Bladder - Taking Fesoterodine 4 mg daily for overactive bladder. Previously seen by Urology and diagnosed with enlarged prostate. MRA completed by Urology showed prostate double the normal size with lesions that graded a 4/5 and has a biopsy scheduled for 09/29/[address] Gotti at [facility]. Weight Loss and Prediabetes - Significant weight loss from 305 lbs to 269 lbs at last OV per Dr. Can. - A1C improved from prediabetic to normal range. - Continue current management and lifestyle changes were suggested at last OV. Topiramate Use - No reported side effects from topiramate. Effective for weight loss; taking 75mg BID. HLD: - Managed with Zetia and Repatha injection. Managed by [employer], Dr. Aguillon. HTN: - 1 year ago was managed with Lisinopril 10mg daily. Has Torsemide on the list PRN for fluid retention/swelling. Managed by [employer], Dr. Aguillon. JOSE RAUL: - CPAP use daily. *Colonoscopy was due this year but was postponed after a rib fracture in March/April; [facility]. Denies smoking and alcohol use. Declines influenza vaccination today. * ROS: S ee HPI. * Medical History: Morbid (severe) obesity due to excess calories Sleep apnea, unspecified Hyperlipidemia, unspecified Essential (primary) hypertension Atherosclerotic heart disease of andreafski coronary artery without angina pectoris Chronic sinusitis, unspecified Aortic valve stenosis, etiology of cardiac valve disease unspecified Heart failure with preserved left ventricular function (HFpEF) Enlarged prostate with lower urinary tract symptoms Body mass index (BMI) 40.0-44.9, adult Prediabetes Personal history of urinary calculi Personal history of colonic polyps Frequency of micturition Male erectile dysfunction, unspecified Overactive bladder Erythema intertrigo Unilateral inguinal hernia, without obstruction or gangrene, not specified as recurrent Dental caries, unspecified Nontoxic single thyroid nodule Medical History Verified * Surgical History: (38249) BILATERAL PROCEDURE: UNLESS ,notes : lithrotropsy Coronary artery stent placement _ CABG ,notes : 4-vessel bypass. vessel taken from left arm and right leg 2 Colonoscopy ,notes : Dr. Crispin Llanes. Three polyps removed: ascending colon, transverse colon, and rectum. All identified as tubular adenomas. Negarive for high grade dysplasias. 06/01/2021 Surgical History verified. * Medications: T akingLisinopril 20 MG Tablet 1 tablet Orally Once a day Mirabegron ER 50 MG Tablet Extended Release 24 Hour 1 tablet Orally Once a day Torsemide 20 MG Tablet 1 Oral every day As neededVitamin D3 50 MCG (2000 UT) Tablet 1 Oral every day Vitamin B-12 1000 MCG Tablet 1 Oral every day Nitroglycerin 0.4 MG Tablet Sublingual Sublingual Zetia 10 MG Tablet 1 Oral every night at bedtime Repatha SureClick 140 MG/ML Solution Auto-injector 1 Subcutaneous Monthly Aspirin Adult Low Strength 81 MG Tablet Delayed Release 1 Oral every day ranolazine 1,000 mg Tablet(s) 1 BY MOUTH two times a day , Notes to Pharmacist: *Reorder from [facility] for eRx and Interaction Alerts*Fesoterodine Fumarate ER 4 MG Tablet Extended Release 24 Hour 1 tablet Orally Once a day Topiramate 50 MG Tablet 1.5 tablets Orally twice a day , Notes to Pharmacist: increased dose, patient requesting to be filled with new directions. thank you.Tadalafil 5 MG Tablet 1 tablet Orally Once a day Medication List reviewed and reconciled with the patientTaking Lisinopril 20 MG Tablet 1 tablet Orally Once a day Taking Mirabegron ER 50 MG Tablet Extended Release 24 Hour 1 tablet Orally Once a day Taking Torsemide 20 MG Tablet 1 Oral every day As neededTaking Vitamin D3 50 MCG (2000 UT) Tablet 1 Oral every day Taking Vitamin B-12 1000 MCG Tablet 1 Oral every day Taking Nitroglycerin 0.4 MG Tablet Sublingual Sublingual Taking Zetia 10 MG Tablet 1 Oral every night at bedtime Taking Repatha SureClick 140 MG/ML Solution Auto-injector 1 Subcutaneous Monthly Taking Aspirin Adult Low Strength 81 MG Tablet Delayed Release 1 Oral every day Taking ranolazine 1,000 mg Tablet(s) 1 BY MOUTH two times a day , Notes to Pharmacist: *Reorder from [facility] for eRx and Interaction Alerts*Taking Fesoterodine Fumarate ER 4 MG Tablet Extended Release 24 Hour 1 tablet Orally Once a day Taking Topiramate 50 MG Tablet 1.5 tablets Orally twice a day , Notes to Pharmacist: increased dose, patient requesting to be filled with new directions. thank you.Taking Tadalafil 5 MG Tablet 1 tablet Orally Once a day Medication List reviewed and reconciled with the patient * Allergies: A tenolol: hypotensive - Allergy - Onset Date 11/12/2021alcium: renal stones - Allergy - Onset Date 11/12/2021Imdur: bradycardia, dizzy - Allergy - Onset Date 11/12/2021Lipitor: Allergy - Onset Date 05/28/2021metFORMIN: nausea, emesis, diarrhea - Allergy - Onset Date 08/26/2023Statins: joint pain - Allergy - Onset Date 05/28/2021Warfarin: hypotensive - Allergy - Onset Date 11/12/2021yesAllergies Verified. Objective: * Vitals: B P:104/58mm Hg, HR:59/min, Temp:96.5F, Oxygen sat %:97%, Ht: 70.00 in, Wt:267.0lbs, Wt-k.11 kg, Ht-cm: 177.8 cm, BMI:38.31Index, Body Surface Area: 2.44, Weight change: 0.6 lbs. Past Vitals:* 04/20/2025 BP:116/70mm Hg, HR:59/min, O xygen sat %:96%, Wt:266.4lbs, Wt-k.84 kg * 03/30/2025 BP:110/60mm Hg, HR:64/min, O xygen sat %:98%, Wt:269.2lbs, Wt-k.11 kg * Examination: G eneral Examination: General appearance: a lert, pleasant, well-nourished and in no acute distress. Head: n ormocephalic, atraumatic. Eyes: e xtraocular movement intact (EOMI), pupils equal, round, reactive to light and accommodation, conjunctiva clear. Ears: b oth ears, tympanic membrane intact and clear. Nose: n viviane patent. Oral cavity: n ormal, mucosa moist, palate normal. Throat: p harynx normal, clear. Neck / thyroid: n ormal thyroid size and shape without nodules, or tenderness, neck is supple with no cervical lymphadenopathy. Lymph nodes: n o cervical lymphadenopathy. Skin: w arm and dry; good skin turgor. Heart: r egular rate and rhythm. Lungs: c lear to auscultation bilaterally, with good air movement and no rales, rhonchi or wheezes. Abdomen: s oft, large with good bowel sounds, nontender, and no masses or hepatosplenomegaly. Extremities: n ormal extremity with no clubbing, cyanosis or edema. Peripheral pulses: 2 + radial. Psych: a lert and oriented x 3, cooperative with exam, with good judgement and insight, normal affect / mood. Assessment: * Assessment: 1. E levated PSA - R97.20 (Primary) 2 . E nlarged prostate with lower urinary tract symptoms - N40.1 S pecify :Src Problem: BPH associated with nocturia 3 . O veractive bladder - N32.81 4 . E ssential (primary) hypertension - I10 5 . H yperlipidemia, unspecified - E78.5 S pecify :Src Problem: Hyperlipidemia 6 . A therosclerotic heart disease of andreafski coronary artery without angina pectoris - I25.10 S pecify :Src Problem: Coronary artery disease 7 . S leep apnea, unspecified - G47.30 S pecify :Src Problem: Sleep apnea 8 . M orbid obesity - E66.01 9 . B OR 38.0-38.9,adult - Z68.38 1 0. V itamin D deficiency - E55.9 Plan: * Treatment: 2. E ssential (primary) hypertension Notes: Well controlled. Taking Lisinopril daily. Managed by Cardiology, Dr. Aguillon, has upcoming appt. with him in one month. Plan: - Recommend low sodium diet/heart healthy diet, daily intentional exercise or movement, weight management, and medication compliance for best control of blood pressure - Routine monitoring of CMP (electrolytes/kidney function) and Lipid panel every 6 months. - Encouraged monitoring blood pressure at home daily (check BP upon awakening, then 1-2 hours after taking BP medication) and log readings - Goal BP to be less than 130/80 - Monitor for symptoms such as: chest pain, dyspnea, swelling in legs fatigue, dizziness upon standing, vision changes and/or headaches. 3. H yperlipidemia, unspecified Notes: Excellent lipid control on Repatha and Zetia. Plan: Continue Repatha injections and Zetia as currently prescribed by cardiology. Recheck lipids every 6 months. 4. S leep apnea, unspecified Notes: Uses CPAP nightly; notes mask may be oversized now. Plan: [facility] plans [facility]. Continue nightly CPAP use. 5. V itamin D deficiency Notes: Low vitamin D on labs; was taking daily Vit. D3 supplement. Plan: Will resume prior vitamin D supplementation once recovered from tomorrow's procedure with Urology.? 6. O thers Notes: Preventive & Ongoing care -Colonoscopy overdue (was postponed due to rib fracture); influenza vaccine declined. Plan: Patient [facility] per prior schedule). Influenza vaccination offered; patient declines at this time. Office blood pressure within normal limits today; continue current home practices. Schedule routine follow-up with this clinic in 6 months (or sooner as needed). * Follow Up: 6 Months (Reason: Med Check w/ labs) Billing Information: * Visit Code: [id number] OFFICE VISIT MODERATE. * Procedure Codes: * S TINTER Sign off status: Completed true * Provider: Jorge Ch NP Date: 11/29/2024 Generated for Bandar stark/Hans/Katelin on: 11/30/2024 12:49 AM GLASS TINTER
--- OUTSIDE RECORDS SUMMARY | 2025-09-29 00:49 | XMS_ITS | Encounter Summary ---
Author Organization [facility] Address [facility] [place] [address] Care Team Providers Care Sander And Buffer Name Role Phone Alejandra Can MD Primary Care Provider Jhony Wilcox MD Unavailable Unavailabl e Kar Conner MD Unavailable [phone] Gm Aguillon MD Unavailable [phone] Encounter Details Date Type Department Care Team (Late st Contact Info) Description 05/30/2015 Abstract [facility] [address] [place] [address] Jhony Wilcox MD Social History Tobacco Use Types Packs/Day Years Used Date Smoking Tobacco: Former Cigarettes Alcohol Use Standard Drinks/Week Comments No 0 (1 standard drink = 0.6 oz pur e alcohol) Sex and Gender Information Value Date Recorded Sex Assigned at Not on file Legal Sex Male 5:00 PM CDT Gender Identity Not on file Sexual Orientation Not on file 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 [address] [place] [address] documented as of this encounter Visit Diagnoses Not on filedocumented in this encounter Additional Health Concerns Infection Onset Date Last Indicated Resolved Time COVID-19 Rule Out 07/15/2020 07/15/2020 07/16/2020 6:11 PM CDT COVID-19 Rule Out 05/29/2021 05/29/2021 05/29/2021 2:45 PM CDT COVID-19 Rule Out 06/01/2021 06/01/2021 06/01/2021 11:30 AM CDT documented as of this encounter Care Teams Sander And Buffer Relationship Specialty Start Date End Date Alejandra Can MD [address] [place] [address] PCP - General FAMILY PRACTICE 09/23/16 Jhony Wilcox MD [address] [place] [address] [place] [employer] Administration Manager CARDIOVASCULAR DISEASE 09/23/16 10/26/18 Kar Conner MD [address] [place] [address] Consulting Physician INTERNAL MEDICINE 03/11/18 Gm Aguillon MD [facility] [address] [place] [address] [place] Credit Administration Manager CARDIOVASCULAR DISEASE 12/30/18 documented as of this encounter
--- OUTSIDE RECORDS SUMMARY | 2025-09-29 00:49 | XMS_ITS | Clinical Summary ---
Author Organization [facility] [employer] Address [address] [place] [address] Care Team Providers Care Garment Presser Name Role Phone Unavailable Primary Care Provider Unavailabl e Source Comments [facility] [employer],non-owned Affiliates and Associated Physician Practices is amultiple site organization consisting of ambulatory clinics and hospital sitesin [place], [place], [place] and [place]. This disclosure is being madepursuant to the Care Everywhere program and may not contain all information available regarding this patient. 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
--- OUTSIDE RECORDS SUMMARY | 2025-09-29 00:49 | XMS_ITS | Patient Health Record ---
Author Organization [facility] Address [address] [place] [address] Care Team Providers Care Doctor Of Audiology Name Role Phone Dr. Alejandra Can Primary Care Provider [phone] Suraj Benton Unavailable [phone] Alejandra Ch Unavailable [phone] Dr. Phani Villalba Unavailable [phone] Allergies Allergen (clinical drug ingredient) Drug/Non Drug Allergy documented on EMR Reaction Allergy Type Onset Date Status atenolol Atenolol hypotensive Drug Allergy 11/12/2021 Acti ve calcium carbonate Calcium renal stones Drug Allergy 2021 Active Imdur bradycardia, dizzy Drug Allergy 11/12/19 22 Active atorvastatin Lipitor Unknown Drug Allergy 05/28/2021 Act mir metformin metFORMIN nausea, emesis, diarrhea Drug Allergy 08/26/2023 Active Substance with 8-gvsfzpp-5-methylg lutaryl-coenzyme A reductase inhibitor mechanism of action (substance) Statins joint pain Drug Allergy 05/28/2021 Active warfarin Warfarin hypotensive Drug Allergy 11/12/2021 Acti ve Results Component Value Reference Range Notes Hemoglobin A1c {Glycosylated } Reviewed date:09/27/2025 11:50:05 AM Interpretation: Performing Lab: Notes/Report: Vitamin D 25 Hydroxy Reviewed date:09/27/2025 11:50:26 AM Interpretation: Performing Lab: Notes/Report: T4 Free Reviewed date:09/27/2025 11:50:38 AM Interpretation: Performing Lab: Notes/Report: CBC w Auto Diff Reviewed date:09/27/2025 11:49:42 AM Interpretation: Performing Lab: Notes/Report: Comprehensive Metabolic Pane l Reviewed date:09/27/2025 08:51:03 AM Interpretation: Performing Lab: Notes/Report: Lipid Panel {Chol, Trig, HDL , LDL} Reviewed date:09/27/2025 11:49:56 AM Interpretation: Performing Lab: Notes/Report: Thyroid Stimulating Hormone Reviewed date:09/27/2025 11:50:15 AM Interpretation: Performing Lab: Notes/Report: Vitamin B12 Reviewed date:09/27/2025 11:51:00 AM Interpretation: Performing Lab: Notes/Report: Hemoglobin A1c {Glycosylated } Reviewed date:03/28/2025 10:05:49 AM Interpretation: Performing Lab: Notes/Report: T4 Free Reviewed date:03/28/2025 10:06:24 AM Interpretation: Performing Lab: Notes/Report: CBC w Auto Diff Reviewed date:03/28/2025 10:05:04 AM Interpretation: Performing Lab: Notes/Report: Comprehensive Metabolic Pane l Reviewed date:03/28/2025 10:05:19 AM Interpretation: Performing Lab: Notes/Report: Lipid Panel {Chol, Trig, HDL , LDL} Reviewed date:03/28/2025 10:05:37 AM Interpretation: Performing Lab: Notes/Report: Thyroid Stimulating Hormone Reviewed date:03/28/2025 10:04:50 AM Interpretation: Performing Lab: Notes/Report: PSA Annual Screening Reviewed date:03/28/2025 10:06:04 AM Interpretation: Performing Lab: Notes/Report: Reason For Referral Reason elevated PSA Diagnosis 1 Elevated prostate sp ecific antigen [PSA] (R97.20) Referral Organization [facility] Referring Provider First Name Dr. Roberts Referring Provider Last Name [place] Referring Provider [facility] Referred Provider Tashi [place] Referred Provider Specialty Urology General Notes Tiki Lua 0 04/13/2025 04:26:00 PM CDT >Referral faxed to [facility] [phone] Kaitlin 07/12/2025 11:00:01 AM CDT >consult note in chart Referral Priority Routine Referral Appointment Date 07/12/2025 Medications Medication SIG (Take, Route, Frequency, Duration) Notes Start Date End Date Status Lisinopril 20 MG Tablet 1 tablet Orally Once a day Active Topiramate 50 MG Tablet 1.5 tablets Orally twice a day; Duration: 90 days increased dose, patient requesting to be filled with new directions. thank you. Active Fesoterodine Fumarate ER 4 MG Tablet Extended Release 24 Hour 1 tablet Orally Once a day; Duration: 30 days Active ranolazine 1,000 mg Tablet(s) 1 BY MOUTH two times a day; Duration: 0 *Reorder from [facility] for eRx and Interaction Alerts* 11/12/2021 Active Aspirin Adult Low Strength 81 MG Tablet Delayed Release 1 Oral every day; Duration: 0 11/12/2021 Active Vitamin B-12 1000 MCG Tablet 1 Oral every day; Duration: 0 11/12/2021 Active Vitamin D3 50 MCG (2000 UT) Tablet 1 Oral every day; Duration: 0 11/12/2021 Active Torsemide 20 MG Tablet 1 Oral every day; Duration: 0 days As needed 11/12/2021 Active Mirabegron ER 50 MG Tablet Extended Release 24 Hour 1 tablet Orally Once a day Active Tadalafil 5 MG Tablet 1 tablet Orally Once a day; Duration: 90 days Active Repatha SureClick 140 MG/ML Solution Auto-injector 1 Subcutaneous Monthly; Duration: 0 11/12/2021 Active Zetia 10 MG Tablet 1 Oral every night at bedtime; Duration: 0 11/12/2021 Active Nitroglycerin 0.4 MG Tablet Sublingual Sublingual; Duration: 0 11/12/2021 Active Immunizations Vaccine Route Administration Date Status Comme nts Pfizer-Biontech Covid-19 Vaccine 1st dose Unknown 06/09/2021 Administered ,sourcename : Historical information -from public agency Source VFC Code: : Pfizer-Biontech Covid-19 Vaccine 1st dose Unknown 06/30/2021 Administered ,sourcename : Historical information -from public agency Source VFC Code: : Social History Tobacco Use: Social History Observation Description Date Details (start date - stop date) Never Smoker NA - NA Social History Household: Social Info Question Answer Notes Household Marital status: Drug/Alcohol: Social Info Question Answer Notes AUDIT-C (Standard) Did you have a drink containing alcohol in the past year? No Points 0 Interpretation Negative Tobacco Use: Social Info Question Answer Notes Tobacco Control (Standard) Tobacco use: Nonsmoker Additional Details Category Social Info Options Details Miscellaneous: Occupation: retired. Full nursing home in 2023 Problems Problem Type SNOMED Code ICD Code Onset Dates Problem Status W/U Status Risk Notes Problem Diastolic heart failure (445732814) Heart failure with preserved left ventricular function (HFpEF) (I50.30) Active confirmed Problem Aortic valve disorder (8131081) Aortic valve stenosis, etiology of cardiac valve disease unspecified (I35.0) Active confirmed Problem Obese class II (358144418374122) BMI 38.0-38.9,adult (Z68.38) Active confirmed Problem Vitamin D deficiency (89489785) Vitamin D deficiency (E55.9) Active confirmed Problem Body mass index 40+ - severely obese (220915311) Body mass index (BMI) 40.0-44.9, adult (Z68.41) 08/18/20 23 Active confirmed Problem Postprocedural states (012084362) Other specified postprocedural states (Z98.890) 06/05/20 Active confirmed Problem Elevated PSA (453327668) Elevated prostate specific antigen [PSA] (R97.20) 09/17/20 24 Active confirmed Problem Prediabetes (770641124) Prediabetes (R73.03) 08/20/20 23 Active confirmed Problem History of polyp of colon (situation) (701473930) Personal history of colonic polyps (Z86.010) 05/29/20 21 Active confirmed Problem Adult health examination (853430742) Encounter for general adult medical examination without abnormal findings (Z00.00) 08/18/20 23 Active confirmed Problem Urinary incontinence (772391218) Unspecified urinary incontinence (R32) 02/13/20 23 Active confirmed Problem Heartburn (78082477) Heartburn (R12) 09/17/20 24 Active confirmed Problem Overactive bladder (104435978) Overactive bladder (N32.81) 08/18/20 23 Active confirmed Problem Inguinal hernia (748720761) Unilateral inguinal hernia, without obstruction or gangrene, not specified as recurrent (K40.90) 04/24/20 23 Active confirmed Problem Dental caries (39005291) Dental caries, unspecified (K02.9) 01/17/20 24 Active confirmed Problem Sleep apnea (61578296) Sleep apnea, unspecified (G47.30) 02/28/20 24 Active confirmed Problem Hyperlipidemia (04138851) Hyperlipidemia, unspecified (E78.5) 09/19/20 24 Active confirmed Problem Non-toxic single thyroid nodule (841788017) Nontoxic single thyroid nodule (E04.1) 02/27/20 24 Active confirmed Problem Morbid obesity (022438856) Morbid obesity (E66.01) Active confirmed Problem Lower urinary tract symptoms due to benign prostatic hypertrophy (05577167998223) Enlarged prostate with lower urinary tract symptoms (N40.1) 04/24/20 23 Active confirmed Problem Encounter for screening for COVID-19 (Z11.52) 04/11/20 22 Active confirmed Problem History of urinary stone (478032840) Personal history of urinary calculi (Z87.442) 06/05/20 22 Active confirmed Problem Frequency of micturition (284314353) Frequency of micturition (R35.0) 08/18/20 23 Active confirmed Problem Erectile dysfunction (disorder) (760835195) Male erectile dysfunction, unspecified (N52.9) 02/13/20 23 Active confirmed Problem Erythema intertrigo (81741218) Erythema intertrigo (L30.4) 08/15/20 22 Active confirmed Problem Atherosclerotic heart disease of [place] coronary artery without angina pectoris (739487870238488) Atherosclerotic heart disease of [place] coronary artery without angina pectoris (I25.10) 02/28/20 24 Active confirmed Problem Essential hypertension (92805360) Essential (primary) hypertension (I10) 09/15/20 24 Active confirmed Problem Morbid obesity (disorder) (136575096) Morbid (severe) obesity due to excess calories (E66.01) 09/17/20 24 Active confirmed Vital Signs Heart Rate 59 /min 09/28/2025 Temperature 96.5 degrees Fahrenheit 09/28/2025 Respiratory Rate 16 /min 04/20/2025 Blood pressure diastolic 58 mm Hg 09/28/2025 Height-cm 177.8 cm 09/28/2025 Oximetry 97 % 09/28/2025 Weight-kg 121.11 kg 09/28/2025 Height 70.00 in 09/28/2025 Blood pressure systolic 104 mm Hg 09/28/2025 Weight 267.0 lbs 09/28/2025 BMI 38.31 kg/m2 09/28/2025 Encounters Encounter Location Date Provider Diagnosis [address] [address] 02/22/2025 Dr. Phani Villalba Shortness of breath R06.02 ; Aortic valve stenosis, etiology of cardiac valve disease unspecified I35.0 and Heart failure with preserved left ventricular function (HFpEF) I50.30 [place] [id number] 03/30/2025 Dr. Alejandra Can Elevated PSA R97.20 ; Enlarged prostate with lower urinary tract symptoms N40.1 ; Overactive bladder N32.81 ; Sleep apnea, unspecified G47.30 ; Essential (primary) hypertension I10 ; Atherosclerotic heart disease of [place] coronary artery without angina pectoris I25.10 ; Morbid obesity E66.01 ; BMI 38.0-38.9,adult Z68.38 ; Actinic keratosis L57.0 and Telangiectasia I78.1 [place] [id number] 04/20/2025 [facility] Encounter for pre-operative examination Z01.818 ; Aortic valve stenosis, etiology of cardiac valve disease unspecified I35.0 ; Heart failure with preserved left ventricular function (HFpEF) I50.30 ; Overactive bladder N32.81 ; Sleep apnea, unspecified G47.30 ; Essential (primary) hypertension I10 and Atherosclerotic heart disease of [place] coronary artery without angina pectoris I25.10 [place] [address] 09/28/2025 Alejandra Ch Elevated PSA R97.20 ; Enlarged prostate with lower urinary tract symptoms N40.1 ; Overactive bladder N32.81 ; Essential (primary) hypertension I10 ; Hyperlipidemia, unspecified E78.5 ; Atherosclerotic heart disease of [place] coronary artery without angina pectoris I25.10 ; Sleep apnea, unspecified G47.30 ; Morbid obesity E66.01 ; BMI 38.0-38.9,adult Z68.38 and Vitamin D deficiency E55.9 [place] [id number] 03/24/2025 Dr. Alejandra Can Hyperlipidemia, unspecified E78.5 ; Essential (primary) hypertension I10 ; Prediabetes R73.03 and Encounter for prostate cancer screening Z12.5 [place] [id number] 09/20/2025 Dr. Alejandra Can Prediabetes R73.03 ; Essential (primary) hypertension I10 ; Hyperlipidemia, unspecified E78.5 ; Vitamin D deficiency E55.9 and Vitamin B12 deficiency E53.8 Assessments Encounter Date Diagnosis (ICD Code) Assessment Notes Treatment Notes Treatment Clinical Notes Section Notes 03/24/2025 Hyperlipidemia, unspecified (ICD-10 - E78.5) 02/22/2025 Shortness of breath (ICD-10 - R06.02) Reviewed Chest xray and labwork. Treating this as an asthma flare. Rubi KENNEY called pt. and updated of treatment plan and results- Zpak, prednisone, and Albuterol PRN. Pt. already had Albuterol PRN inhaler at home. 02/22/2025 Aortic valve stenosis, etiology of cardiac valve disease unspecified (ICD-10 - I35.0) reveiwed last ECHO. Could be contributing 03/30/2025 Enlarged prostate with lower urinary tract symptoms (ICD-10 - N40.1) 03/30/2025 Elevated PSA (ICD-10 - R97.20) 03/24/2025 Essential (primary) hypertension (ICD-10 - I10) 04/20/2025 Encounter for pre-operative examination (ICD-10 - Z01.818) I have reviewed the patient's history and documentation. Based on the medical history and today's physical exam, medications are optimized and patient's medical risk is appropriate for the procedure. Reviewed meds with patient. Patient aware of meds to hold and continue for procedure. He verbally reports clearance from cardiology. 09/20/2025 Prediabetes (ICD-10 - R73.03) 09/28/2025 Enlarged prostate with lower urinary tract symptoms (ICD-10 - N40.1) Known enlarged prostate; Urology identified a few spots requiring biopsy (scheduled for tomorrow at [facility]). One prior bladder/prostate medication stopped this morning per Urologist; new medication started. Plan: After procedure, patient will notify clinic of any medication changes initiated by urology. Await pathology results; follow up per Urology recommendations. Continue current recommended med regimen per Urology. 09/28/2025 Elevated PSA (ICD-10 - R97.20) 09/20/2025 Essential (primary) hypertension (ICD-10 - I10) 09/28/2025 Overactive bladder (ICD-10 - N32.81) 03/30/2025 Overactive bladder (ICD-10 - N32.81) 04/20/2025 Aortic valve stenosis, etiology of cardiac valve disease unspecified (ICD-10 - I35.0) 03/24/2025 Prediabetes (ICD-10 - R73.03) 02/22/2025 Heart failure with preserved left ventricular function (HFpEF) (ICD-10 - I50.30) reveiwed last ECHO. Could be contributing 03/24/2025 Encounter for prostate cancer screening (ICD-10 - Z12.5) 03/30/2025 Sleep apnea, unspecified (ICD-10 - G47.30) 04/20/2025 Heart failure with preserved left ventricular function (HFpEF) (ICD-10 - I50.30) 09/20/2025 Hyperlipidemia, unspecified (ICD-10 - E78.5) 09/28/2025 Essential (primary) hypertension (ICD-10 - I10) [...] dizziness upon standing, vision changes and/or headaches. 09/20/2025 Vitamin D deficiency (ICD-10 - E55.9) 09/28/2025 Hyperlipidemia, unspecified (ICD-10 - E78.5) Excellent lipid control on Repatha and Zetia. Plan: Continue Repatha injections and Zetia as currently prescribed by cardiology. Recheck lipids every 6 months. 04/20/2025 Overactive bladder (ICD-10 - N32.81) 03/30/2025 Essential (primary) hypertension (ICD-10 - I10) 03/30/2025 Atherosclerotic heart disease of [place] coronary artery without angina pectoris (ICD-10 - I25.10) 04/20/2025 Sleep apnea, unspecified (ICD-10 - G47.30) 09/20/2025 Vitamin B12 deficiency (ICD-10 - E53.8) 09/28/2025 Atherosclerotic heart disease of [place] coronary artery without angina pectoris (ICD-10 - I25.10) 09/28/2025 Sleep apnea, unspecified (ICD-10 - G47.30) Uses CPAP nightly; notes mask may be oversized now. Plan: Patient plans to schedule [place] appointment for CPAP mask refitting. Continue nightly CPAP use. 04/20/2025 Essential (primary) hypertension (ICD-10 - I10) 03/30/2025 Morbid obesity (ICD-10 - E66.01) 04/20/2025 Atherosclerotic heart disease of [place] coronary artery without angina pectoris (ICD-10 - I25.10) 03/30/2025 BMI 38.0-38.9,adult (ICD-10 - Z68.38) 09/28/2025 Morbid obesity (ICD-10 - E66.01) 09/28/2025 BMI 38.0-38.9,adult (ICD-10 - Z68.38) 03/30/2025 Actinic keratosis (ICD-10 - L57.0) 03/30/2025 Telangiectasia (ICD-10 - I78.1) 09/28/2025 Vitamin D deficiency (ICD-10 - E55.9) Low vitamin D on labs; was taking daily Vit. D3 supplement. Plan: Will resume prior vitamin D supplementation once recovered from tomorrow's procedure with Urology. 03/30/2025 Other Elevated PSA - PSA increased from 3.7 in September to 4.2, which is high. Possible causes discussed. 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 - Recheck PSA at [facility] at patient's convenience. If PSA remains elevated, refer to urology for further monitoring. Consider rechecking PSA every three to six months to monitor trends. Overactive Bladder - Taking Fesoterodine 4 mg daily for overactive bladder. Previously seen by urology and diagnosed with large prostate. - Continue current medication regimen. Weight Loss and Prediabetes - Significant weight loss from 305 lbs to 269 lbs. A1c improved from prediabetic to normal range. - Continue current management and lifestyle changes. Topiramate Use - No reported side effects from topiramate. Effective for weight loss. - Increase dose to 75 mg twice daily. Prescribe 90-day supply with instructions to use existing tablets by cutting them. Monitor for potential side effects such as tiredness, spaciness, or forgetfulness. Precancerous Skin Lesions - Precancerous lesions identified on the skin. - Cryotherapy performed during the visit. Consider chemotherapy cream or further dermatological intervention if lesions do not heal. Blood Vessel on Nose - Superficial blood vessel causing bleeding, not precancerous. - Consider cosmetic laser treatment or cautery if bleeding persists. 09/28/2025 Other Preventive & Ongoing care -Colonoscopy overdue (was postponed due to rib fracture); influenza vaccine declined. Plan: Patient to reschedule colonoscopy through [place] (every 5 years per prior schedule). Influenza vaccination offered; patient declines at this time. Office blood pressure within normal limits today; continue current home practices. Schedule routine follow-up with this clinic in 6 months (or sooner as needed). Plan Of Treatment Pending Test Test Name Order Date PSA, total 03/30/2025 Next Appt Details Provider Name:Dr. Alejandra dalal, 04/21/2026 09:30:00 AM, [address] [place], [address], [phone] Insurance Providers Payer Name Payer Address Payer Phone Subscriber Number Group Number Insured Name Patient Relationship to Insured Coverage Start Date Coverage End Date [employer] [address] [place] [address] [id number] Self - patient is the insured 5 Medical (General) History Medical History History ICD Code Morbid (severe) obesity due to excess ca lories E66.01 Sleep apnea, unspecified G47.30 Hyperlipidemia, unspecified E78.5 Essential (primary) hypertension I10 Atherosclerotic heart diseas e of [place] coronary artery without angina pectoris I25.10 Chronic sinusitis, unspecified J32.9 Aortic valve stenosis, etiology of cardi ac valve disease unspecified I35.0 Heart failure with preserved left ventri cular function (HFpEF) I50.30 Enlarged prostate with lower urinary tra ct symptoms N40.1 Body mass index (BMI) 40.0-44.9, adult Z 68.41 Prediabetes R73.03 Personal history of urinary calculi Z87. 442 Personal history of colonic polyps Z86.0 10 Frequency of micturition R35.0 Male erectile dysfunction, unspecified N 52.9 Overactive bladder N32.81 Erythema intertrigo L30.4 Unilateral inguinal hernia, without obstruction or gangrene, not specified as recurrent K40.90 Dental caries, unspecified K02.9 Nontoxic single thyroid nodule E04.1 Surgical History Surgery Date(Month/Year) () BILATERAL PROCEDURE: UNLESS ,not es : lithrotropsy Coronary artery stent placement _ CABG ,notes : 4-vessel bypas s. vessel taken from left arm and right leg 2 Colonoscopy ,notes : Dr. Cisneros in [place]. Three polyps removed: ascending colon, transverse colon, and rectum. All identified as tubular adenomas. Negarive for high grade dysplasias. 06/01/2021
--- OUTSIDE RECORDS SUMMARY | 2025-09-29 00:49 | XMS_ITS | Encounter Summary ---
Author Organization [facility] Address [facility] [place] [address] Care Team Providers Care Glass Calibrator Name Role Phone Alejandra Can MD Primary Care Provider Gm Aguillon MD Unavailable [phone] Encounter Details Date Type Department Care Team (Late st Contact Info) Description 12/06/2020 Abstract [facility] [id number] Alison Hernandez MA Social History Tobacco Use Types Packs/Day Years Used Date Smoking Tobacco: Former Cigarettes Smokeless Tobacco: Never Alcohol Use Standard Drinks/Week Comments No 0 (1 standard drink = 0.6 oz pur e alcohol) Sex and Gender Information Value Date Recorded Sex Assigned at Not on file Legal Sex Male 5:00 PM CDT Gender Identity Not on file Sexual Orientation Not on file 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 Unable to assess 11/30/2020 10:42 AM HAND TRUCKER documented as of this encounter Functional Status * RETIRED Are you deaf or do you have serious difficulty hearing Answer Date of Assessment Author Status No 04/17/2019 10:46 AM CDT Acti ve * RETIRED Are you blind or do you have serious difficulty seeing, even when wearing glasses? Answer Date of Assessment Author Status No 04/17/2019 10:46 AM CDT Acti ve * Do you have serious difficulty walking or climbing stairs? Answer Date of Assessment Author Status No 04/17/2019 10:46 AM Denis Melvin RN Active * Do you have difficulty dressing or bathing? Answer Date of Assessment Author Status No 04/17/2019 10:46 AM Denis Melvin RN Active * Because of a physical, mental, or emotional condition, do you have difficulty doing errands alone such as visiting a doctor's office or shopping? Answer Date of Assessment Author Status No 04/17/2019 10:46 AM Denis Melvin RN Active documented as of this encounter Mental Status * Because of a physical, mental, or emotional condition, do you have serious difficulty concentrating, remembering, or making decisions? Answer Entry Date Author Status No 04/17/2019 10:46 AM Denis Melvin RN Active documented in this encounter Plan of Treatment Upcoming Encounters Date Type Department Care Team (Late st Contact Info) Description 10/13/2025 8:30 AM HAND TRUCKER Office Visit [facility] [address] [place] [phone] Gm Aguillon MD [address] [id number] documented as of this encounter Procedures Procedure Name Priority Date/Time Associated Diagnosis Comments HEMOGLOBIN, GLYCOSYLATED Routine 11/28/2023 BNP Routine 11/28/2023 COMPREHENSIVE METABOLIC PANEL Routine 11/28/2023 LIPID PANEL Routine 11/28/2023 CBC, MANUAL DIFF Routine 11/28/2023 THYROID STIM HORMONE TSH Routine 11/28/2023 VITAMIN D, 25 OH Routine 11/28/2023 COMPREHENSIVE METABOLIC PANEL Routine 11/28/2022 LIPID PANEL Routine 11/28/2022 CBC, MANUAL DIFF Routine 11/28/2022 PROSTATE SPECIFIC ANTIGEN,TOTAL Routine 11/09/2021 COMPREHENSIVE METABOLIC PANEL Routine 11/09/2021 LIPID PANEL Routine 11/09/2021 HEMOGLOBIN Routine 11/09/2021 HEMATOCRIT Routine 11/09/2021 THYROID STIM HORMONE TSH Routine 11/09/2021 BASIC METABOLIC PANEL Routine 2020 LIPID PANEL Routine 2020 documented in this encounter Results * VITAMIN D, 25 OH (11/28/2023) VITAMIN D 25 HYDROXY S/P/B 35.1 11/28/2023 us Default History Genericprovider LABORATORY Final Result * COMPREHENSIVE METABOLIC PANEL (11/28/2023) SODIUM S/P/B 139 GLUCOSE 89 mg/dL AST 12 BUN 17 CREATININE S/P/B 1.1 0.7 - 1.3 CALCIUM S/P/B 9.3 POTASSIUM S/P/B 4.4 CHLORIDE S/P/B 108 ALT 13 GFR ESTIMATE 75 us Default History Genericprovider LABORATORY Edited Result - Final * LIPID PANEL (11/28/2023) CHOLESTEROL 141 TRIGLYCERIDES 71 HDL 48 LDL (CALCULATED) 79 Default History Genericprovider LABORATORY Edited Result - Final * CBC, MANUAL DIFF (11/28/2023) [facility] WBC 5.7 HGB 14.1 HCT 42.5 PLT 344 Default History Genericprovider LABORATORY Edited Result - Final * HEMOGLOBIN, GLYCOSYLATED (11/28/2023) [facility] HGB A1C 5.7 % Default History Genericprovider LABORATORY Edited Result - Final * THYROID STIM HORMONE, TSH (11/28/2023) [facility] TSH 0.961 Result [facility] Default History Genericprovider LABORATORY Edited Result - Final * BNP (11/28/2023) [facility] B TYPE NATRIURETIC PEPTIDE 39 Result [facility] History Genericprovider LABORATORY Edited Result - Final * COMPREHENSIVE METABOLIC PANEL (11/28/2022) [facility] SODIUM S/P/B 139 GLUCOSE 88 mg/dL AST 16 BUN 17 CREATININE S/P/B 1.1 0.7 - 1.3 CALCIUM S/P/B 9.9 POTASSIUM S/P/B 4.7 CHLORIDE S/P/B 104 ALT 22 GFR ESTIMATE 76 Narrative Resulting Agency Comment Result [facility] Default History Genericprovider LABORATORY Final Result * LIPID PANEL (11/28/2022) [facility] CHOLESTEROL 137 TRIGLYCERIDES 87 HDL 50 LDL (CALCULATED) 70 Narrative Resulting Agency Comment Result [facility] Default History Genericprovider LABORATORY Final Result * CBC, MANUAL DIFF (11/28/2022) [facility] WBC 5.8 HGB 15.1 HCT 45.7 PLT 332 Narrative Resulting Agency Comment Result [facility] Default History Genericprovider LABORATORY Final Result * THYROID STIM HORMONE, TSH (11/09/2021) [facility] TSH 5.00 11/09/2021 us Doc [facility] LABORATORY Final Result * PROSTATE SPECIFIC ANTIGEN,TOTAL (11/09/2021) PSA 3.5 11/09/2021 us Doc [facility] LABORATORY Final Result * HEMATOCRIT (11/09/2021) HCT 45.1 11/09/2021 [facility] Doc [facility] LABORATORY Final Result * Hemoglobin (11/09/2021) HGB 14.5 11/09/2021 [facility] LABORATORY Final Result * LIPID PANEL (11/09/2021) CHOLESTEROL 123 HDL 46 TRIGLYCERIDES 88 LDL (CALCULATED) 59 11/09/2021 us Doc [facility] LABORATORY Final Result * COMPREHENSIVE METABOLIC PANEL (11/09/2021) SODIUM S/P/B 136 POTASSIUM S/P/B 5.0 CO2 25 GLUCOSE 87 mg/dL BUN 16 CREATININE S/P/B 0.9 0.7 - 1.3 ALKALINE PHOSPHATASE S/P/B 68 ALT 21 AST 15 BILIRUBIN TOTAL S/P/B 0.7 ALBUMIN S/P/B 3.9 3.5 - 5.0 TOTAL PROTEIN S/P/B 6.6 11/09/2021 us Doc [facility] LABORATORY Final Result * LIPID PANEL (2020) CHOLESTEROL 135 HDL 47 TRIGLYCERIDES 105 LDL (CALCULATED) 67 2020 [facility] LABORATORY Edited Resul t - Final * (ABNORMAL) BASIC METABOLIC PANEL (2020) SODIUM S/P/B 139 POTASSIUM S/P/B 4.8 CHLORIDE S/P/B 102 CO2 BICARBONATE 29(A) 22 - 26 GLUCOSE 91 mg/dL CALCIUM S/P/B 9.6 BUN 16 CREATININE (U) 0.9 EGFR NON-AFR. AMER. 86.1 <=90 2020 [facility] Doc [facility] LABORATORY Edited Resul t - Final documented in this encounter Visit Diagnoses Not on filedocumented in this encounter Additional Health Concerns Infection Onset Date Last Indicated Resolved Time COVID-19 Rule Out 05/29/2021 05/29/2021 05/29/2021 2:45 PM CDT COVID-19 Rule Out 06/01/2021 06/01/2021 06/01/2021 11:30 AM CDT documented as of this encounter Care Teams Glass Calibrator Relationship Specialty Start Date End Date Alejandra Can MD [address] [place] [id number] PCP - General FAMILY PRACTICE 09/23/16 Gm Aguillon MD [facility] [place]. [facility] [address] [place] [address] [place] [employer] Recorder CARDIOVASCULAR DISEASE 12/30/18 documented as of this encounter
--- OUTSIDE RECORDS SUMMARY | 2025-09-29 00:50 | XMS_ITS | Clinical Summary ---
Author Organization [facility] Address [address] [place] [address] Care Team Providers Care Technical Lead Name Role Phone Alejandra Can MD Primary Care Provider Gm Aguillon MD Unavailable [phone] Allergies Active Allergy Reactions Criticality Noted Date Comments Atenolol Other (see comment) 11/26/2016 Increased b/p Atorvastatin Myalgias 11/26/2016 Calcium Unknown 11/26/2016 Isosorbide Nitrate Shortness of Breath,Headache,Chest pressure High 02/08/2019 Simvastatin Myalgias 05/20/2019 Medications aspirin 81 MG tablet Take 1 tablet (81 mg total) by mouth daily. 01/02/20 19 Active famotidine 20 MG tablet Take 1 tablet (20 mg total) by mouth as needed for Heartburn. Active vitamin B-12 1000 MCG tablet Take 1 tablet (1,000 mcg total) by mouth daily. Active benzonatate 100 MG capsule Take 1 capsule (100 mg total) by mouth as needed for Cough. 12/11/19 Active potassium chloride CR 20 MEQ Tab CR tablet Take 20 mEq by mouth daily. 90 tablet 3 10/03/20 22 Active Additional Information Patient taking differently:20 mEq OralDaily as needed, Reported on 10/07/2024 torsemide (DEMADEX) 20 MG tablet Take 1 tablet (20 mg total) by mouth daily. 90 tablet 3 10/03/20 Active Additional Information Patient taking differently:20 mg OralDaily as needed, Reported on 10/07/2024 fesoterodine ER (TOVIAZ) 4 MG 24 hr tablet Take 1 tablet (4 mg total) by mouth daily. 09/15/20 24 Active vitamin D3 10 mcg tablet Take 1 tablet (10 mcg total) by mouth daily. Active topiramate (TOPAMAX) 50 MG Tab Take 1 tablet (50 mg total) by mouth 2 (two) times daily. Active nitroglycerin (NITROSTAT) 0.4 MG SL tabletIndicati ons:Coronary artery disease involving coronary bypass graft of [place] heart without angina pectoris Place 1 tablet (0.4 mg total) under the tongue every 5 (five) minutes as needed for Chest Pain. 25 tablet 1 10/11/20 Active lisinopril (PRINIVIL) 20 MG tablet TAKE ONE (1) TABLET (20 MG TOTAL) BY MOUTH DAILY. STRENGTH: 20 MG 90 tablet 3 12/15/19 25 Active ezetimibe (ZETIA) 10 MG tablet Take 1 tablet (10 mg total) by mouth daily. 90 tablet 08/29/20 25 Active evolocumab (REPATHA SURECLICK) 140 MG/ML injection (PEN) INJECT 1 ML (140 MG TOTAL) INTO THE SKIN EVERY 14 (FOURTEEN) DAYS. 6 mL 09/12/20 25 Active ranolazine ER 1000 MG TABLET SR 12 HR 12 hr tablet TAKE 1 TABLET BY MOUTH 2 (TWO) TIMES DAILY. 180 tablet 09/26/20 25 Active REPATHA SURECLICK 140 MG/ML injection (PEN) INJECT 1 ML (140 MG TOTAL) INTO THE SKIN EVERY 14 (FOURTEEN) DAYS. 6 mL 3 08/30/20 24 025 Discontinued ranolazine ER 1000 MG TABLET SR 12 HR 12 hr tablet TAKE 1 TABLET BY MOUTH 2 (TWO) TIMES DAILY. 180 tablet 2 12/28/19 25 025 Discontinued Active Problems Problem Noted Date Diagnosed Date Ischemic cardiomyopathy 05/25/2020 JOSE RAUL (obstructive sleep apnea) 05/20/2019 Essential hypertension 01/02/2019 Chronic systolic congestive heart failure 2018 Obesity 02/10/2018 HLD (hyperlipidemia) 11/26/2016 Status post insertion of drug eluting coronary a rtery stent 02/06/2005 Overview (11/26/2016): Kathie JOVANNI of RCA S/P CABG x 4 04/25/2000 Overview (11/26/2016): WHYTE to LAD, vein graft to marginal branch of left circumflex coronary artery, left free radial artery graft to distal left circumflex coronary artery, vein graft to RCA ASHD (arteriosclerotic heart disease) 10/27/1999 Overview (11/26/2016): s/p 4-vessel CABG Encounters Date Type Department Care Team Description 09/09/2025 Telephone [facility] [place] [facility], [address] [phone] Gm Aguillon MD Surgical Clearance (Dr Gotti requesting cardiac clearance) from Last 3 Months Family History Medical History Relation Comments CABG Father Coronary artery disease Father Hyperlipidemia Father Alcohol Abuse Mother Cancer - Larynx Mother Thyroid Mother COPD Other Hyperlipidemia Other Kidney Disease Other Pancreatic cancer Other Relation Status Comments Father (Age 64) Mother (Age 47) Other Social History Tobacco Use Types Packs/Day Years Used Date Smoking Tobacco: Never Smokeless Tobacco: Never Alcohol Use Standard Drinks/Week Comments No 0 (1 standard drink = 0.6 oz pur e alcohol) Sex and Gender Information Value Date Recorded Sex Assigned at Not on file Legal Sex Male 5:00 PM CDT Gender Identity Not on file Sexual Orientation Not on file Occupation Industry Job Start 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 Job 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 Date 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 on file Not on file Not on file Not on file Not on file Not on file Not on file Not on file Not on file Not on file Not on file Last Filed Vital Signs Vital Sign Reading Time Taken Comments Blood Pressure 121/78 05/09/2025 4:30 AM CDT Pulse 54 05/09/2025 4:30 AM CDT Temperature 36.6 C (97.8 F) 05/09/2025 4:30 AM CDT Respiratory Rate 16 05/09/2025 4:30 AM CDT Oxygen Saturation 96% 05/09/2025 4:30 AM CDT Inhaled Oxygen Concentration - - Weight 120.2 kg (265 lb) 05/09/2025 3:35 AM CDT Height 179.1 cm (5' 10.5) 05/09/2025 3:35 AM CD T Body Mass Index 37.49 05/09/2025 3:35 AM CDT Plan of Treatment Upcoming Encounters Date Type Department Care Team (Late st Contact Info) Description 10/13/2025 8:30 AM TRIMMING INSPECTOR Office Visit [facility] [place] [address] Gm Aguillon MD [facility]. [facility] [address] [place] [address] Health Maintenance Due Date Last Done Comments Annual Physical 1963 Hepatitis C 1978 DTaP, Tdap and Td Vaccines (1 - Tdap) 1979 Pneumococcal Vaccine: 50+ Years (1 of 2 - PCV) 1979 Zoster Vaccines (1 of 2) 2010 RSV Immunization or 60+ Years (1 - Risk 60-74 years 1-dose series) 2020 PHQ-2 (Physician [place]) 10/27/2024 COVID-19 Vaccine (3 - season) 2025 06/30/2021, 06/09/2021 Influenza Adult (#1) 2025 ASCVD LDL 09/16/2025 09/16/2024, 02/0 11/2023, 11/28/2022, Additional history exists Colorectal Cancer Screening Colonoscopy (10 Years) 06/01/2031 06/01/2021, 10/31/2015 Hepatitis A Vaccines Aged Out No long er eligible based on patient's age to complete this topic Meningococcal B Vaccine Aged Out No l onger eligible based on patient's age to complete this topic Meningococcal Vaccine Aged Out No jenelle danay eligible based on patient's age to complete this topic RSV Immunizations Under 20 Months Aged Out No longer eligible based on patient's age to complete this topic Medical Devices Implanted Type Area Plastic Parts Designer Device Identifier Shelf Expiration Date Model / Serial / Lot Heart Stents Procedures Procedure Name Priority Date/Time Associated Diagnosis Comments LIPID PANEL (OUTSIDE LAB) Routine 09/16/2024 COLONOSCOPY GENERIC (SCAN ORDER) 10/31/2015 from Last 3 Months or Most Recently Relevant to Health Maintenance Results * LIPID PANEL (OUTSIDE LAB) (09/16/2024) CHOLESTEROL 140 <199 TRIGLYCERIDES 93 0 - 149 HDL 50 23 - 92 LDL (CALCULATED) 72 <100 RISK 36% NON HDL CHOLESTEROL 91 <130 CHOL/HDL RATIO 3 0 - 5 09/16/2024 us Default History Genericprovider LAB-OUTSIDE/ABST RACTED Final Result * COLONOSCOPY GENERIC (10/31/2015) 10/31/2015 Narrative 10/31/2015 Ordered by an unspecified provider. us Documents Scanned SCANNING Final Result from Last 3 Months or Most Recently Relevant to Health Maintenance Insurance [facility] Advance Directives * Full Code (Latest Code Status on File) Date Activated Date Inactivated Comments 04/16/2019 6:27 PM 04/17/2019 1:14 PM Care Teams Technical Lead Relationship Specialty Start Date End Date Alejandra Can MD [address] [place] [address] PCP - General FAMILY PRACTICE 09/23/16 Gm Aguillon MD [facility] [address] [place] [address] [employer] Lock[employer]ch Machine Operator CARDIOVASCULAR DISEASE 12/30/18
--- NOTE | 2025-09-29 06:29 | WPDHPUPDATE1 ---
History and Physical Update Update Date/Time: 09/29/25 06:29 History and Physical has been reviewed, including an updated exam of the patient. There are NO changes in the patient's condition. Risks, benefits, and alternatives have been discussed and questions answered. Patient agrees to proceed with procedure.
[2025-09-29 06:30] VITALS: BP 119/71; PULSE 56; RESP 16; TEMP 36.3; O2SAT 100
--- NOTE | 2025-09-29 07:01 | S_PTH ---
PATIENT: Patrick Pepper LOC: [facility] U#:[id number] AGE/SX: 64/M ROOM: RE09/29/[address]: Sunil Gotti MD : 1960 BED: DIS: 09/29/2025 SPEC #: [id number] RECD: 09/29/25 09:08 STATUS: [place] RE #: [id number] [place]: 09/29/25 07:[address]: Sunil Gotti DEPT: [facility] Surgical RECD BY: Sugar Demarco ENTERED: 09/29/25 09:09 SP TYPE: Surgical OTHR DR: Alejandra Can MD Tissues: A - Prostate Bx B - Prostate Bx C - Prostate Bx D - Prostate Bx E - Prostate Bx F - Prostate Bx G - Prostate Bx H - Prostate Bx I - Prostate Bx J - Prostate Bx K - Prostate Bx L - Prostate Bx M - Prostate Bx Procedures: Unstained Slides Hematoxylin and Eosin Stain Prostate Biopsy PIN 4 Prostate Triple Stain
[2025-09-29] MEDS: LACTATED RINGERS 1,000 ML 30 ML IV CONT (07:05)
--- NOTE | 2025-09-29 08:01 | WPDANESEPPF ---
Anes - Initial Pre Proc Eval Procedure: Operation Date: 09/29/25 08:15 Proposed Procedures p Trans Rectal Ultrasound Fusion Guided Prostate Biopsy - Sunil Gotti MD Date/Time: 09/29/25 08:01 Surgeon: Sunil Gotti MD Pre Op Diagnosis: elevated PSA Patient Data Age: 64 Gender: M Height: 1.79 m Weight: 118.7 kg Last Vital Signs Temp 36.3 C L 09/29/25 06:30 Pulse 56 L 09/29/25 06:30 Resp 16 09/29/25 06:30 BP 119/71 09/29/25 06:30 Pulse Ox 100 09/29/25 06:30 O2 Del Method Room Air 09/29/25 06:30 Allergies Allergy/AdvReac Type Severity Reaction Status Date / Time atenolol AdvReac Severe Hypotension Verified 09/29/25 07:15 Home Medications ?Medication ?Instructions ?Recorded ?Confirmed ?Type aspirin 81 mg capsule 81 mg PO DAILY 09/20/25 09/29/25 History cholecalciferol (vitamin D3) 10 10 mcg PO DAILY 09/20/25 09/29/25 History mcg (400 unit) tablet (Delta D3) cyanocobalamin (vitamin B-12) 500 500 mcg PO DAILY 09/20/25 09/29/25 History mcg tablet (Vitamin B-12) evolocumab 140 mg/mL subcutaneous 140 mg subcut MONTHLY 09/20/25 09/20/25 History pen injector (Jade Douglas) ezetimibe 10 mg tablet 10 mg PO DAILY 09/20/25 09/29/25 History fesoterodine 4 mg tablet,extended 4 mg PO DAILY 09/20/25 09/29/25 History release 24 hr lisinopril 20 mg tablet 20 mg PO .daily 09/20/25 09/29/25 History mirabegron 50 mg tablet,extended 50 mg PO Q24H 09/20/25 09/29/25 History release 24 hr nitroglycerin 0.4 mg sublingual 0.4 mg sublingual Q5M PRN chest 09/20/25 09/20/25 History tablet pain ranolazine 1,000 mg 1,000 mg PO Q12H 09/20/25 09/29/25 History tablet,extended release,12 hr tadalafil 5 mg tablet (Cialis) 5 mg PO DAILY PRN sexual activity 09/20/25 09/20/25 History topiramate 50 mg tablet 75 mg PO BID 09/20/25 09/29/25 History torsemide 20 mg tablet 20 mg PO QAM PRN swelling 09/20/25 09/20/25 History Patient hx anesthesia problems: none Family hx anesthesia problems: none Results Review: All pre-operative results and documents have been reviewed as part of the pre-operative evaluation. [facility] Social History Social History Smoking status: Never smoker Alcohol intake: never Substance use: never Living arrangements: with family Spiritual care concerns: No Anes - Eval Final PreProcedure Day of Procedure 09/29/25 08:01 Patient weight: obese Heart: regular rate and rhythm Lungs: normal air movement Airway: Mallampati scale class III Neurological: alert and oriented Last oral intake: >/= 8 hours ASA classification: III Emergent: no Anesthetic plan: proceed Anesthesia type and monitoring: general GIVS and standard monitoring Results Review: All pre-operative results and documents have been reviewed as part of the pre-operative evaluation. Informed Consent: The patient's anesthetic plan and its attendant risks and benefits were discussed with the patient/family/POA. Questions were solicited and answers provided to the satisfaction of the patient/family/POA.
[2025-09-29] MEDS: cefTRIAXone 1 GM in SODIUM CHLORIDE 0.9% IV 50 ML 100 ML IVPB (08:14)
[2025-09-29 08:36] VITALS: BP 102/62; PULSE 59; RESP 18; O2SAT 94
--- NOTE | 2025-09-29 08:36 | W.PM.PROC2 ---
Procedure Note - Detailed Date of Procedure 09/29/25 Pre-op Diagnosis Elevated PSA / abnormal prostate MRI Post-op Diagnosis Same Procedure Performed UroNav prostate biopsy Surgeon Sunil Gotti MD Anesthesia General Description of Procedure Patient is brought to the operative suite where he is positioned in the left lateral position. Systemic sedation is administered per the anesthesia department. Surgical time-out is undertaken and it's verified the patient has received preoperative antibiotics. Transrectal ultrasonography is undertaken with a standard transrectal probe. The [employer] system is used to superimpose his previously obtained mpMRI prostate images on the real-time transrectal ultrasond images. Prostate volume is calculated at 56cc. On the previous mpMRI there are one regions of interest. Using the transrectal needle design for prostate biopsies 3 cores from each region of interest her obtain. We then proceeded with a standard 12 core prostate biopsy. Transrectal probe was removed and patient taken to recovery room having tolerated the procedure well. Blood loss was less than 10 cc.
[2025-09-29 09:00] VITALS: BP 106/65; PULSE 55; O2SAT 95
[2025-09-29 09:30] VITALS: BP 127/76; PULSE 54
== END 2025-09-29 09:35 | disposition home or self-care (01) ==
PROVIDERS: PCP Family Medicine; Visit Provider Urology
PROC: (CPT 55700; principal; 2025-09-29 08:15)
DX: C61 Malignant neoplasm of prostate (principal); E66.9 Obesity, unspecified; Z68.37 Body mass index [BMI] 37.0-37.9, adult
CPT/HCPCS: 55700; 76872; 88344; G0416; J0696; J2003; J2250; J2704; J3010; J7120